=== PATIENT | male | born 1950 | race Caucasian/White ===

== ENCOUNTER 2019-02-28 13:42 | Inpatient (IN) | payer MEDICARE ==
[~2019-02-28] VITALS: Ht 167.6 cm; Wt 115.9 kg
--- NOTE | 2019-02-28 14:07 | PHYS DOC ---
Adult General Chief Complaint Chief Complaint: SHORTNESS OF BREATH [facility] HPI Patient is a 69 year old male that presents with shortness of breath and swelling this has been ongoing for several days. The patient has a history of congestive heart failure and states that he is prescribed 40 mg Lasix per day. The patient states that due to his swelling he has been taking 240 mg of Lasix per day. States that he is still having swelling. No other complaints. Review of Systems Review of Systems Constitutional: Denies fever or chills [] Eyes: Denies change in visual acuity, redness, or eye pain [] HENT: Denies nasal congestion or sore throat [] Respiratory: Denies cough or shortness of breath [] Cardiovascular: No additional information not addressed in HPI [] GI: Denies abdominal pain, nausea, vomiting, bloody stools or diarrhea [] : Denies dysuria or hematuria [] Musculoskeletal: Denies back pain or joint pain [] Integument: Denies rash or skin lesions [] Neurologic: Denies headache, focal weakness or sensory changes [] Endocrine: Denies polyuria or polydipsia [] Complete systems were reviewed and found to be within normal limits, except as documented in this note. Allergies Allergies Allergies Coded Allergies Type Severity Reaction Last Updated Verified No Known Drug Allergies 02/28/19 No Physical Exam Physical Exam Constitutional: Well developed, well nourished, no acute distress, non-toxic appearance. [] HENT: Normocephalic, atraumatic, bilateral external ears normal, oropharynx moist, no oral exudates, nose normal. [] Eyes: PERRLA, EOMI, conjunctiva normal, no discharge. [] Neck: Normal range of motion, no tenderness, supple, no stridor. [] Cardiovascular:Heart rate regular rhythm, no murmur [] Lungs & Thorax: Bilateral breath sounds clear to auscultation with exception of diminished in the bases bilaterally. Abdomen: Bowel sounds normal, soft, no tenderness, no masses, no pulsatile masses. Skin: Warm, dry, no erythema, no rash. [] Back: No tenderness, no CVA tenderness. [] Extremities: No tenderness, no cyanosis, no clubbing, ROM intact, has 1+ pitting edema bilaterally. Neurologic: Alert and oriented X 3, normal motor function, normal sensory function, no focal deficits noted. [] Psychologic: Affect normal, judgement normal, mood normal. [] Current Patient Data Vital Signs Vital Signs Date Time Temp Pulse Resp B/P (MAP) Pulse Ox O2 Delivery O2 Flow Rate FiO2 02/28/19 13:54 97.8 81 19 150/72 (98) 94 Room Air 97.8 Lab Values Laboratory Tests Test 02/28/19 14:03 White Blood Count 9.3 x10^3/uL (4.0-11.0) Red Blood Count 3.55 x10^6/uL (4.30-5.70) L Hemoglobin 10.7 g/dL (13.0-17.5) L Hematocrit 32.2 % (39.0-53.0) L Mean Corpuscular Volume 91 fL (79-100) Mean Corpuscular Hemoglobin 30 pg (25-35) Mean Corpuscular Hemoglobin Concent 33 g/dL (31-37) Red Cell Distribution Width 19.6 % (11.5-14.5) H Platelet Count 188 x10^3/uL (140-400) Neutrophils (%) (Auto) 71 % (31-73) Lymphocytes (%) (Auto) 9 % (24-48) L Monocytes (%) (Auto) 12 % (0-9) H Eosinophils (%) (Auto) 6 % (0-3) H Basophils (%) (Auto) 1 % (0-3) Neutrophils # (Auto) 6.6 x10^3/uL (1.8-7.7) Lymphocytes # (Auto) 0.9 x10^3/uL (1.0-4.8) L Monocytes # (Auto) 1.1 x10^3/uL (0.0-1.1) Eosinophils # (Auto) 0.6 x10^3/uL (0.0-0.7) Basophils # (Auto) 0.1 x10^3/uL (0.0-0.2) Prothrombin Time 16.9 SEC (11.7-14.0) H Prothrombin Time INR 1.4 (0.8-1.1) H Activated Partial Thromboplast Time 35 SEC (24-38) Sodium Level 147 mmol/L (136-145) H Potassium Level 4.3 mmol/L (3.5-5.1) Chloride Level 105 mmol/L (98-107) Carbon Dioxide Level 33 mmol/L (21-32) H Anion Gap 9 (6-14) Blood Urea Nitrogen 69 mg/dL (8-26) H Creatinine 2.6 mg/dL (0.7-1.3) H Estimated GFR (Cockcroft-Gault) 24.5 BUN/Creatinine Ratio 27 (6-20) H Glucose Level 180 mg/dL (70-99) H Calcium Level 9.0 mg/dL (8.5-10.1) Total Bilirubin 1.0 mg/dL (0.2-1.0) Aspartate Amino Transferase (AST) 38 U/L (15-37) H Alanine Aminotransferase (ALT) 48 U/L (16-63) Alkaline Phosphatase 167 U/L (46-116) H Creatine Kinase 139 U/L (39-308) Creatine Kinase MB (Mass) 2.7 ng/mL (0.0-3.6) Creatine Kinase MB Relative Index 1.9 % (0-4) Troponin I Quantitative < 0.017 ng/mL (0.000-0.055) UO-Pue-D-Type Natriuretic Peptide 4372 pg/mL (0-124) H Total Protein 8.1 g/dL (6.4-8.2) Albumin 3.1 g/dL (3.4-5.0) L Albumin/Globulin Ratio 0.6 (1.0-1.7) L Laboratory Tests 02/28/19 14:03 Laboratory Tests 02/28/19 14:03 EKG EKG EKG interpreted by Dr. Lord Sinus with rate of 61 that is paced. No STEMI. Right axis deviation.[] Radiology/Procedures Radiology/Procedures [][facility] [address] [place] [address] IMAGING REPORT Signed PATIENT: ROGERIO MUÑIZ ACCOUNT: [id number] : 1950 LOCATION: ER AGE: 69 SEX: M EXAM STATUS: REG ER ORD. PHYSICIAN: COSTA JORDAN APRN REASON: sob PROCEDURE: CHEST PA & LATERAL Chest radiograph 02/28/2019 1:54 PM INDICATION: Shortness of breath COMPARISON: None available TECHNIQUE: Frontal and lateral views of the chest are provided. FINDINGS: The cardiomediastinal silhouette is enlarged. Median sternotomy changes are present. Left chest wall cardiac device is identified with leads projecting over the right atrium, right ventricle and coronary sinus. There is mild pulmonary vascular congestion. No significant pleural effusions or pneumothorax. No significant osseous abnormality is identified. IMPRESSION: Cardiomegaly with mild pulmonary vascular congestion as may be seen with congestive heart failure. Electronically signed by: Lee Ignacio MD (02/28/2019 2:36 PM) [facility] DICTATED and SIGNED BY: LEE IGNACIO MD DATE: 02/28/19 143 Course & Med Decision Making Course & Med Decision Making Pertinent Labs and Imaging studies reviewed. (See chart for details) Will get labs, ekg, chest x-ray.\ Chest xray shows mild pulmonary vascular congestion. Labs shows Creatinine that is 2.6 which is elevated from his baseline of 1.7. Sodium is elevated at 147, BNP is 4376. Will call Dr. Bowers for admission. Will consult Cards, GI and Nephrology. Dr. Bowers accepts admissions at 1500. Will also order abdominal ultrasound due to patient abdominal bloating. Dragon Disclaimer Dragon Disclaimer This electronic medical record was generated, in whole or in part, using a voice recognition dictation system. Departure Departure Impression: Primary Impression: Acute exacerbation of CHF (congestive heart failure) Additional Impression: FILOMENA (acute kidney injury) Disposition: ADMITTED INPATIENT Admitting Physician: AIME Condition: STABLE Problem Qualifiers Primary Impression: Acute exacerbation of CHF (congestive heart failure) Heart failure type: unspecified Qualified Codes: I50.9 - Heart failure, unspecified COSTA JORDAN APRN Feb 28, 2019 14:07
[2019-02-28 14:13] LABS: BASO # 0.1 x10^3/uL (0.0-0.2); BASO % 1 % (0-3); EOS # 0.6 x10^3/uL (0.0-0.7); EOS % 6 % (0-3); HEMATOCRIT 32.2 % (39.0-53.0); HEMOGLOBIN 10.7 g/dL (13.0-17.5); LYMPH # 0.9 x10^3/uL (1.0-4.8); LYMPH % 9 % (24-48); MEAN CORPUSCULAR HEMOGLOBIN 30 pg (25-35); MEAN CORPUSCULAR HGB CONC 33 g/dL (31-37); MEAN CORPUSCULAR VOLUME 91 fL (79-100); MONO # 1.1 x10^3/uL (0.0-1.1); MONO % 12 % (0-9); NEUT # 6.6 x10^3/uL (1.8-7.7); NEUT % 71 % (31-73); PLATELET COUNT 188 x10^3/uL (140-400); RED BLOOD COUNT 3.55 x10^6/uL (4.30-5.70); RED CELL DISTRIBUTION WIDTH 19.6 % (11.5-14.5); WHITE BLOOD COUNT 9.3 x10^3/uL (4.0-11.0)
[2019-02-28 14:22] LABS: PROTHROMBIN TIME PATIENT 16.9 SEC (11.7-14.0)
[2019-02-28 14:25] LABS: CREATININE 2.6 mg/dL (0.7-1.3); GFR 24.5; POTASSIUM 4.3 mmol/L (3.5-5.1)
--- NOTE | 2019-02-28 14:27 | EKG ---
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
[2019-02-28 14:39] LABS: ALBUMIN 3.1 g/dL (3.4-5.0); ALBUMIN/GLOBULIN RATIO 0.6 (1.0-1.7); TOTAL PROTEIN 8.1 g/dL (6.4-8.2)
--- NOTE | 2019-02-28 14:39 | RAD ---
Chest radiograph 02/28/2019 1:54 PM INDICATION: Shortness of breath COMPARISON: None available TECHNIQUE: Frontal and lateral views of the chest are provided. FINDINGS: The cardiomediastinal silhouette is enlarged. Median sternotomy changes are present. Left chest wall cardiac device is identified with leads projecting over the right atrium, right ventricle and coronary sinus. There is mild pulmonary vascular congestion. No significant pleural effusions or pneumothorax. No significant osseous abnormality is identified. IMPRESSION: Cardiomegaly with mild pulmonary vascular congestion as may be seen with congestive heart failure. Electronically signed by: Jaycee Estrada MD (02/28/2019 2:36 PM) [facility]
--- NOTE | 2019-02-28 14:58 | PDOC1 ---
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 The patient has a history of congestive heart failure and states that he is prescribed 40 mg Lasix per day. 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 in [facility], states he has had a CA diagnosed by ekg alone in last 2 years, has gained about 25 lbs in 6 months Past Medical History Cardiovascular: CHF, CA Musculoskeletal: Osteoarthritis Family History Family History: Diabetes Family History: Grandparents Social History Smoke: No ALCOHOL: none Drugs: None Current Problem List Problem List Problems Medical Problems: (1) Acute exacerbation of CHF (congestive heart failure) Status: Acute (2) FILOMENA (acute kidney injury) Status: Acute Allergies Allergies: Coded Allergies: No Known Drug Allergies (Unverified , 02/28/19) ROS Review of System Review of Systems Review of Systems Constitutional: Denies fever or chills [] Eyes: Denies change in visual acuity, redness, or eye pain [] HENT: Denies nasal congestion or sore throat [] Respiratory: notes exertional shortness of breath [] Cardiovascular: No additional information not addressed in HPI [] GI: Denies abdominal pain, nausea, vomiting, bloody stools or diarrhea pos bloating[] : Denies dysuria or hematuria [] Musculoskeletal: Denies back pain or joint pain [] Integument: Denies rash or skin lesions [] Neurologic: Denies headache, focal weakness or sensory changes [] Endocrine: Denies polyuria or polydipsia [] 14 pt systems were reviewed and found to be within normal limits, except as documented Physical Exam Physical Exam Physical Exam Physical Exam Constitutional: Well developed, well nourished, no acute distress, non-toxic appearance. [] HENT: Normocephalic, atraumatic, bilateral external ears normal, oropharynx moist, no oral exudates, nose normal. [] Eyes: PERRLA, EOMI, conjunctiva normal, no discharge. [] Neck: Normal range of motion, no tenderness, supple, no stridor. [] Cardiovascular:Heart rate regular rhythm, no murmur [] Lungs & Thorax: Bilateral breath sounds clear to auscultation with exception of diminished in the bases bilaterally. Abdomen: Bowel sounds normal, soft, no tenderness, no masses, no pulsatile masses. Skin: Warm, dry, no erythema, no rash. [] Back: No tenderness, no CVA tenderness. [] Extremities: No tenderness, no cyanosis, no clubbing, ROM intact, has 2+ pitting edema bilaterally. Neurologic: Alert and oriented X 3, normal motor function, normal sensory function, no focal deficits noted. [] Psychologic: Affect normal, judgment normal, mood normal. [] General: Alert, Oriented X3, Cooperative, No acute distress HEENT: Mucous membr. moist/pink Lungs: Clear to auscultation, Normal air movement Heart: S1S2, RRR, no thrills Abdomen: Soft, Other (very obese) Rectal Exam: not examined PELVIC: Examination not indicated Extremities: No cyanosis, No tenderness/swelling, Other (2 plus ankle edema bilaterally) Neuro: Normal speech, Cranial nerves 3-12 NL Psych/Mental Status: Mental status NL, Mood NL Vitals Vitals Vital Signs Date Time Temp Pulse Resp B/P (MAP) Pulse Ox O2 Delivery O2 Flow Rate FiO2 02/28/19 13:54 97.8 81 19 150/72 (98) 94 Room Air 97.8 Labs Labs Laboratory Tests Test 02/28/19 14:03 White Blood Count 9.3 x10^3/uL (4.0-11.0) Red Blood Count 3.55 x10^6/uL (4.30-5.70) Hemoglobin 10.7 g/dL (13.0-17.5) Hematocrit 32.2 % (39.0-53.0) Mean Corpuscular Volume 91 fL (79-100) Mean Corpuscular Hemoglobin 30 pg (25-35) Mean Corpuscular Hemoglobin Concent 33 g/dL (31-37) Red Cell Distribution Width 19.6 % (11.5-14.5) Platelet Count 188 x10^3/uL (140-400) Neutrophils (%) (Auto) 71 % (31-73) Lymphocytes (%) (Auto) 9 % (24-48) Monocytes (%) (Auto) 12 % (0-9) Eosinophils (%) (Auto) 6 % (0-3) Basophils (%) (Auto) 1 % (0-3) Neutrophils # (Auto) 6.6 x10^3/uL (1.8-7.7) Lymphocytes # (Auto) 0.9 x10^3/uL (1.0-4.8) Monocytes # (Auto) 1.1 x10^3/uL (0.0-1.1) Eosinophils # (Auto) 0.6 x10^3/uL (0.0-0.7) Basophils # (Auto) 0.1 x10^3/uL (0.0-0.2) Prothrombin Time 16.9 SEC (11.7-14.0) Prothromb Time International Ratio 1.4 (0.8-1.1) Activated Partial Thromboplast Time 35 SEC (24-38) Sodium Level 147 mmol/L (136-145) Potassium Level 4.3 mmol/L (3.5-5.1) Chloride Level 105 mmol/L (98-107) Carbon Dioxide Level 33 mmol/L (21-32) Anion Gap 9 (6-14) Blood Urea Nitrogen 69 mg/dL (8-26) Creatinine 2.6 mg/dL (0.7-1.3) Estimated GFR (Cockcroft-Gault) 24.5 BUN/Creatinine Ratio 27 (6-20) Glucose Level 180 mg/dL (70-99) Calcium Level 9.0 mg/dL (8.5-10.1) Total Bilirubin 1.0 mg/dL (0.2-1.0) Aspartate Amino Transf (AST/SGOT) 38 U/L (15-37) Alanine Aminotransferase (ALT/SGPT) 48 U/L (16-63) Alkaline Phosphatase 167 U/L (46-116) Creatine Kinase 139 U/L (39-308) Creatine Kinase MB (Mass) 2.7 ng/mL (0.0-3.6) Creatine Kinase MB Relative Index 1.9 % (0-4) Troponin I Quantitative < 0.017 ng/mL (0.000-0.055) CK-Xhd-G-Type Natriuretic Peptide 4372 pg/mL (0-124) Total Protein 8.1 g/dL (6.4-8.2) Albumin 3.1 g/dL (3.4-5.0) Albumin/Globulin Ratio 0.6 (1.0-1.7) Laboratory Tests Test 02/28/19 14:03 White Blood Count 9.3 x10^3/uL (4.0-11.0) Red Blood Count 3.55 x10^6/uL (4.30-5.70) Hemoglobin 10.7 g/dL (13.0-17.5) Hematocrit 32.2 % (39.0-53.0) Mean Corpuscular Volume 91 fL (79-100) Mean Corpuscular Hemoglobin 30 pg (25-35) Mean Corpuscular Hemoglobin Concent 33 g/dL (31-37) Red Cell Distribution Width 19.6 % (11.5-14.5) Platelet Count 188 x10^3/uL (140-400) Neutrophils (%) (Auto) 71 % (31-73) Lymphocytes (%) (Auto) 9 % (24-48) Monocytes (%) (Auto) 12 % (0-9) Eosinophils (%) (Auto) 6 % (0-3) Basophils (%) (Auto) 1 % (0-3) Neutrophils # (Auto) 6.6 x10^3/uL (1.8-7.7) Lymphocytes # (Auto) 0.9 x10^3/uL (1.0-4.8) Monocytes # (Auto) 1.1 x10^3/uL (0.0-1.1) Eosinophils # (Auto) 0.6 x10^3/uL (0.0-0.7) Basophils # (Auto) 0.1 x10^3/uL (0.0-0.2) Prothrombin Time 16.9 SEC (11.7-14.0) Prothromb Time International Ratio 1.4 (0.8-1.1) Activated Partial Thromboplast Time 35 SEC (24-38) Sodium Level 147 mmol/L (136-145) Potassium Level 4.3 mmol/L (3.5-5.1) Chloride Level 105 mmol/L (98-107) Carbon Dioxide Level 33 mmol/L (21-32) Anion Gap 9 (6-14) Blood Urea Nitrogen 69 mg/dL (8-26) Creatinine 2.6 mg/dL (0.7-1.3) Estimated GFR (Cockcroft-Gault) 24.5 BUN/Creatinine Ratio 27 (6-20) Glucose Level 180 mg/dL (70-99) Calcium Level 9.0 mg/dL (8.5-10.1) Total Bilirubin 1.0 mg/dL (0.2-1.0) Aspartate Amino Transf (AST/SGOT) 38 U/L (15-37) Alanine Aminotransferase (ALT/SGPT) 48 U/L (16-63) Alkaline Phosphatase 167 U/L (46-116) Creatine Kinase 139 U/L (39-308) Creatine Kinase MB (Mass) 2.7 ng/mL (0.0-3.6) Creatine Kinase MB Relative Index 1.9 % (0-4) Troponin I Quantitative < 0.017 ng/mL (0.000-0.055) ZS-Evn-N-Type Natriuretic Peptide 4372 pg/mL (0-124) Total Protein 8.1 g/dL (6.4-8.2) Albumin 3.1 g/dL (3.4-5.0) Albumin/Globulin Ratio 0.6 (1.0-1.7) Images Images Chest radiograph 02/28/2019 1:54 PM INDICATION: Shortness of breath COMPARISON: None available TECHNIQUE: Frontal and lateral views of the chest are provided. FINDINGS: The cardiomediastinal silhouette is enlarged. Median sternotomy changes are present. Left chest wall cardiac device is identified with leads projecting over the right atrium, right ventricle and coronary sinus. There is mild pulmonary vascular congestion. No significant pleural effusions or pneumothorax. No significant osseous abnormality is identified. IMPRESSION: Cardiomegaly with mild pulmonary vascular congestion as may be seen with congestive heart failure. Electronically signed by: Lee Estrada MD (02/28/2019 2:36 PM) [facility] DICTATED and SIGNED BY: LEE ESTRADA MD DATE: 02/28/19 1436 VTE Prophylaxis Ordered VTE Prophylaxis Devices: No VTE Pharmacological Prophylaxi: Yes Assessment/Plan Assessment/Plan IMPRESSION: acute exac of chf Cardiomegaly with mild pulmonary vascular congestion as may be seen with congestive heart failure. ACUTE RENAL INJURY, suspect CKD subjective abdominal bloating morbid obesity anemia DIABETES SUSPECTED inc LFT'S anemia PLAN ADMIT cvc bed ECHO CARDIOLOGY CONSULT Nephrology consult abd sono tsh UA GI CONSULT A1C Accuchecks FE PANEL 58 min pt exam, chart review, > 50% of time spent with exam, chart review, pt care coordination ESTEBAN ECHEVARRIA MD Feb 28, 2019 14:58
[2019-02-28] MEDS ORDERED: ACETAMINOPHEN 325 MG TABLET. PO PRN (15:45)
[2019-02-28] MEDS ORDERED: ONDANSETRON PF 4 MG/2 ML VIAL. IV PRN (15:45)
[2019-02-28] MEDS ORDERED: cloNIDine HCL 0.1 MG TABLET PO PRN (15:45)
[2019-02-28] MEDS ORDERED: ALBUTEROL SULFATE 2.5 MG/3 ML NEBU. NEB PRN (15:45)
[2019-02-28] MEDS ORDERED: 0.9 % SODIUM CHLORIDE 10 ML DISP.SYRIN. IV PRN (15:45)
[2019-02-28] MEDS ORDERED: guaiFENesin ORAL 200 MG/10 ML LIQUID. PO PRN (15:45)
[2019-02-28] MEDS ORDERED: DOCUSATE SODIUM 100 MG CAPSULE. PO PRN (15:45)
[2019-02-28] MEDS ORDERED: DEXTROSE 50% 25 GM / 50ML DISP.SYRIN. IV PRN (16:00)
[2019-02-28] MEDS ORDERED: IV DEXTROSE 5% 250 ML BAG. IV PRN (16:00)
--- NOTE | 2019-02-28 16:20 | PDOC2 ---
GI CONSULT Reason For Consult: Bloating HPI: HPI: 69 y/o male seen in ER. SOA and weight gain (16 lbs) x 3 weeks unimproved w/ increased Lasix dose. Has had trace BLE edema and abdominal distention - says he's needed to wear pants w/ elastic waistbands. Georgina notes decreased appetite. Noted w/ Hgb 10.7, MCV 91, RDW 19.6, INR 1.4, BUN 69, Cr 2.6, TSH 8, BNP 4372, bili 1, AST 38, ALT 48, Alk Phos 167. CXR w/ cardiomegaly and mild pulmonary vascular congestion. No n/v, reflux/heartburn, abd pain, diarrhea, constipation, hematochezia, or melena. Had EGD and colonoscopy last year in [place] w/ Dr. Vo for anemia that reportedly showed an ulcer +H. pylori - says he was given PrevPac and repeat EGD confirmed healing. He thinks colonoscopy showed a polyp - he is actually scheduled to have another colonoscopy on 03/13/19 at [facility]. No GB, liver, or pancreas history. Takes ASA 81mg QD. Says Hgb returned to normal after last EGD so he's surprised to learn he's anemic again. PMH: PMH: CAD, CHF, HLD, DM, CKD (follows w/ nephrology), glaucoma, PUD, colon polyp CABG, AICD, left renal biopsy (specimen lost en route to lab) FH: Family History: No pertinent hx (denies GI cancers) Social History: Smoke: Quit ALCOHOL: occassional Drugs: None ROS: GEN: Denies fevers, chills, sweats HEENT: Denies blurred vision, sore throat CV: Denies chest pain RESP: +SOA GI: Per HPI : Denies hematuria, dysuria ENDO: +weight gain NEURO: Denies confusion, dizziness MSK: +swelling SKIN: Denies jaundice, pruritus Vitals: Vitals: Vital Signs Date Time Temp Pulse Resp B/P (MAP) Pulse Ox O2 Delivery O2 Flow Rate FiO2 02/28/19 13:54 97.8 81 19 150/72 (98) 94 Room Air 97.8 Labs: Labs: Laboratory Tests Test 02/28/19 13:59 02/28/19 14:03 Thyroid Stimulating Hormone (TSH) 8.052 uIU/mL (0.358-3.74) White Blood Count 9.3 x10^3/uL (4.0-11.0) Red Blood Count 3.55 x10^6/uL (4.30-5.70) Hemoglobin 10.7 g/dL (13.0-17.5) Hematocrit 32.2 % (39.0-53.0) Mean Corpuscular Volume 91 fL (79-100) Mean Corpuscular Hemoglobin 30 pg (25-35) Mean Corpuscular Hemoglobin Concent 33 g/dL (31-37) Red Cell Distribution Width 19.6 % (11.5-14.5) Platelet Count 188 x10^3/uL (140-400) Neutrophils (%) (Auto) 71 % (31-73) Lymphocytes (%) (Auto) 9 % (24-48) Monocytes (%) (Auto) 12 % (0-9) Eosinophils (%) (Auto) 6 % (0-3) Basophils (%) (Auto) 1 % (0-3) Neutrophils # (Auto) 6.6 x10^3/uL (1.8-7.7) Lymphocytes # (Auto) 0.9 x10^3/uL (1.0-4.8) Monocytes # (Auto) 1.1 x10^3/uL (0.0-1.1) Eosinophils # (Auto) 0.6 x10^3/uL (0.0-0.7) Basophils # (Auto) 0.1 x10^3/uL (0.0-0.2) Prothrombin Time 16.9 SEC (11.7-14.0) Prothromb Time International Ratio 1.4 (0.8-1.1) Activated Partial Thromboplast Time 35 SEC (24-38) Sodium Level 147 mmol/L (136-145) Potassium Level 4.3 mmol/L (3.5-5.1) Chloride Level 105 mmol/L (98-107) Carbon Dioxide Level 33 mmol/L (21-32) Anion Gap 9 (6-14) Blood Urea Nitrogen 69 mg/dL (8-26) Creatinine 2.6 mg/dL (0.7-1.3) Estimated GFR (Cockcroft-Gault) 24.5 BUN/Creatinine Ratio 27 (6-20) Glucose Level 180 mg/dL (70-99) Calcium Level 9.0 mg/dL (8.5-10.1) Total Bilirubin 1.0 mg/dL (0.2-1.0) Aspartate Amino Transf (AST/SGOT) 38 U/L (15-37) Alanine Aminotransferase (ALT/SGPT) 48 U/L (16-63) Alkaline Phosphatase 167 U/L (46-116) Creatine Kinase 139 U/L (39-308) Creatine Kinase MB (Mass) 2.7 ng/mL (0.0-3.6) Creatine Kinase MB Relative Index 1.9 % (0-4) Troponin I Quantitative < 0.017 ng/mL (0.000-0.055) OM-Dli-D-Type Natriuretic Peptide 4372 pg/mL (0-124) Total Protein 8.1 g/dL (6.4-8.2) Albumin 3.1 g/dL (3.4-5.0) Albumin/Globulin Ratio 0.6 (1.0-1.7) Allergies: Coded Allergies: No Known Drug Allergies (Unverified , 02/28/19) Medications: CXR 02/28 IMPRESSION: Cardiomegaly with mild pulmonary vascular congestion as may be seen with congestive heart failure. Abd US 02/28 pending Imaging: Imaging: CXR IMPRESSION: Cardiomegaly with mild pulmonary vascular congestion as may be seen with congestive heart failure. PE: GEN: NAD HEENT: Atraumatic, PERRL LUNGS: clear anteriorly HEART: RRR ABD: NABS, large/round, some distention, non-tender EXTREMITY: trace BLE edema SKIN: No rashes, no jaundice NEURO/PSYCH: A & O �3, drowsy A/P: A/P: CHF, CKD/?FILOMENA Abd distention Normocytic anemia, elevated TSH, mildly elevated AST and Alk Phos H/o PUD/H. pylori - treated/healed on EGD last year CRC screen, h/o polyps - reports colonoscopy last year in [place] H/o CAD on ASA -- Cardiology and nephrology to see. Await US. Follow Hgb and LFTs. Check anemia parameters - iron profile already ordered, add B12. 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 Will ask for 'scope records from [place]. GERALD MADRID Feb 28, 2019 16:20
--- NOTE | 2019-02-28 16:22 | RAD ---
Complete abdominal ultrasound 02/28/2019 2:56 PM Clinical History: Abdominal bloating Technique: Ultrasound examination of the abdomen was performed, and multiple static images were submitted for review. Comparison: None Findings: The pancreas is not visualized secondary to overlying gas filled bowel. The aorta and IVC are poorly visualized. The liver is enlarged measuring 23 cm longitudinally. No focal hepatic lesion is identified on provided imaging. Hepatic echotexture appears be grossly normal. The common bile duct is dilated to 1.1 cm. The gallbladder however surgically absent this therefore may represent reservoir effect/postoperative change. The right kidney measures 15 cm longitudinally. There is an exophytic cyst arising from the right kidney measuring 2.6 cm. The spleen is enlarged measuring 13.5 cm. Multicystic structure is present in the left upper abdomen. Etiology is uncertain. This measures at least 21 cm in diameter. This could represent a multicystic, or markedly hydronephrotic left kidney. Evaluation by ultrasound is limited. Impression: 1. Hepatosplenomegaly. 2. Multicystic structure in the left upper abdomen, at least 21 cm in diameter, possibly a multicystic or markedly hydronephrotic left kidney. Abdominal CT recommended for further evaluation. 3. Dilatation of the common bile duct. Contracted gallbladder. Consider correlation with laboratory findings. Attention on follow-up CT scan recommended. Electronically signed by: Barrera Lopez MD (02/28/2019 4:19 PM) [id number]
[2019-02-28 16:30] VITALS: BP 146/78
[2019-02-28] MEDS ORDERED: POLYETHYLENE GLYCOL 3350 17 GM PACKET. PO PRN (16:30)
[2019-02-28] MEDS: PANTOPRAZOLE 40 MG TABLET.DR. PO SCH (16:30)
[2019-02-28] MEDS: INSULIN LISPRO 300 UNITS/3 ML VIAL. SQ SCH (17:33)
[2019-02-28] MEDS ORDERED: CYAN-25 PO (17:51)
[2019-02-28] MEDS ORDERED: ASCO500T3 PO (17:51)
[2019-02-28] MEDS ORDERED: LISI-334 PO (17:51)
[2019-02-28] MEDS ORDERED: ISOS30TA4 PO (17:51)
[2019-02-28] MEDS ORDERED: GABA800T5 PO (17:51)
[2019-02-28] MEDS ORDERED: INSU100I27 SQ (17:51)
[2019-02-28] MEDS ORDERED: SERT100T8 PO (17:51)
[2019-02-28] MEDS ORDERED: TRAM50TA PO (17:51)
[2019-02-28] MEDS ORDERED: AMIO200T4 PO (17:51)
[2019-02-28] MEDS ORDERED: TAMS0.4C97 PO (17:51)
[2019-02-28] MEDS ORDERED: ALLO100T PO (17:51)
[2019-02-28] MEDS ORDERED: ATOR40TA59 PO (17:51)
[2019-02-28] MEDS ORDERED: DIGO125T PO (17:51)
[2019-02-28] MEDS ORDERED: SAXA5TAB PO (17:51)
[2019-02-28] MEDS ORDERED: FURO-68 PO (17:51)
[2019-02-28] MEDS ORDERED: CHOL10003 PO (17:51)
[2019-02-28] MEDS ORDERED: INSU100C SQ (17:51)
[2019-02-28] MEDS ORDERED: OMEG-165 PO (17:51)
[2019-02-28] MEDS ORDERED: CARB15DR3 EACHEYE (17:51)
[2019-02-28] MEDS ORDERED: ASPI-612 PO (17:51)
[2019-02-28] MEDS ORDERED: CARV25TA PO (17:51)
[2019-02-28] MEDS ORDERED: TIMO10DR5 EACHEYE (17:51)
[2019-02-28] MEDS ORDERED: UBID10CA7 PO (17:51)
[2019-02-28] MEDS ORDERED: POLY2500 PO (17:51)
[2019-02-28] MEDS ORDERED: LATA2.5D3 OP (17:51)
[2019-02-28] MEDS ORDERED: BRIN10DR EACHEYE (17:51)
[2019-02-28] MEDS ORDERED: traMADol 50 MG TABLET PO PRN (18:15)
[2019-02-28 19:57] VITALS: BP 180/78
[2019-02-28] MEDS: ATORVASTATIN CALCIUM 40 MG TABLET. PO SCH (21:35)
[2019-02-28] MEDS: GABAPENTIN 400 MG CAPSULE. PO SCH (21:35)
[2019-02-28] MEDS: LATANOPROST 0.005% OPHTH SOLUTION 2.5ML BOTTLE. OU SCH (21:36)
[2019-02-28] MEDS: OMEGA-3 FATTY ACIDS/FISH OIL 1,000 MG CAPSULE. PO SCH (21:37)
[2019-02-28] MEDS: FUROSEMIDE 40 MG TABLET. PO SCH (21:37)
[2019-02-28] MEDS: TAMSULOSIN 0.4 MG CAP.ER.24H. PO SCH (21:37)
[2019-02-28] MEDS: TIMOLOL 0.5% OPHTH SOLUTION 5ML BOTTLE. OU SCH (21:38)
[2019-02-28] MEDS: DORZOLAMIDE 2% OPHTH SOLUTION 10ML BOTTLE. OU SCH (21:39)
[2019-02-28] MEDS: POLYVINYL ALCOHOL 1.4% OPHTH SOLUTION 15ML BOTTLE. OU SCH (21:40)
[2019-02-28] MEDS: INSULIN GLARGINE SYRINGE. SQ SCH (21:53)
[2019-02-28 22:02] VITALS: BP 157/81
[2019-03-01 03:12] VITALS: BP 159/86
[2019-03-01 05:54] LABS: BASO # 0.1 x10^3/uL (0.0-0.2); BASO % 1 % (0-3); EOS # 0.7 x10^3/uL (0.0-0.7); EOS % 9 % (0-3); HEMATOCRIT 30.8 % (39.0-53.0); HEMOGLOBIN 10.1 g/dL (13.0-17.5); LYMPH # 1.1 x10^3/uL (1.0-4.8); LYMPH % 13 % (24-48); MEAN CORPUSCULAR HEMOGLOBIN 30 pg (25-35); MEAN CORPUSCULAR HGB CONC 33 g/dL (31-37); MEAN CORPUSCULAR VOLUME 91 fL (79-100); MONO # 0.8 x10^3/uL (0.0-1.1); MONO % 10 % (0-9); NEUT # 5.5 x10^3/uL (1.8-7.7); NEUT % 67 % (31-73); PLATELET COUNT 172 x10^3/uL (140-400); RED BLOOD COUNT 3.37 x10^6/uL (4.30-5.70); RED CELL DISTRIBUTION WIDTH 19.3 % (11.5-14.5); WHITE BLOOD COUNT 8.2 x10^3/uL (4.0-11.0)
[2019-03-01 06:09] LABS: ALBUMIN/GLOBULIN RATIO 0.6 (1.0-1.7); CALCIUM 9.1 mg/dL (8.5-10.1); CREATININE 2.1 mg/dL (0.7-1.3); GFR 31.3; POTASSIUM 3.7 mmol/L (3.5-5.1); TOTAL PROTEIN 7.9 g/dL (6.4-8.2)
[2019-03-01 06:13] LABS: BILIRUBIN,URINE NEGATIVE (NEG); CLARITY,URINE CLEAR; COLOR,URINE YELLOW; NITRITE,URINE NEGATIVE (NEG); PROTEIN,URINE 30 mg/dL (NEG-TRACE)
[2019-03-01 07:00] VITALS: BP 144/75
[2019-03-01 07:24] LABS: BACTERIA,URINE 0 /HPF (0-FEW); RBC,URINE OCC /HPF (0-2); WBC,URINE 0 /HPF (0-4)
[2019-03-01] MEDS: PANTOPRAZOLE 40 MG TABLET.DR. PO SCH (07:30)
[2019-03-01] MEDS: INSULIN LISPRO 300 UNITS/3 ML VIAL. SQ SCH ×6 (08:00→17:26)
--- NOTE | 2019-03-01 08:14 | RAD ---
CLINICAL HISTORY: Lower extremity edema COMPARISON: None available. TECHNIQUE: Ultrasound evaluation of the bilateral lower extremities was performed from the groin to the upper calf with bazan scale, spectral and color doppler evaluation. FINDINGS: The bilateral common femoral vein, and femoral vein, including the saphenous-femoral junction are normal in appearance. Color and spectral Doppler evaluation demonstrates normal spontaneous flow, augmentation and phasicity. The bilateral popliteal vein and visualized calf veins also demonstrate normal compressibility and flow. Bilateral popliteal cystic structures are seen. IMPRESSION: No evidence for bilateral lower extremity DVT. Electronically signed by: Stephan Montano MD (03/01/2019 8:11 AM) [facility]
[2019-03-01] MEDS ORDERED: PERFLUTREN PROTEIN-A MICROSPHR 0.22 MG/ML 3 ML VIAL. IV ONE (08:45)
[2019-03-01] MEDS: POLYVINYL ALCOHOL 1.4% OPHTH SOLUTION 15ML BOTTLE. OU SCH ×4 (09:00→20:38)
[2019-03-01] MEDS: POLYETHYLENE GLYCOL 3350 17 GM PACKET. PO SCH (09:00)
[2019-03-01] MEDS ORDERED: UBIDECARENONE 10 MG PO SCH (09:00)
[2019-03-01] MEDS ORDERED: LISINOPRIL 20 MG TABLET PO SCH (09:00)
--- NOTE | 2019-03-01 09:03 | CARD ---
MR#: [id number] Date of Study: 03/01/2019 Ordering Physician: ESTEBAN ECHEVARRIA, Referring Physician: ESTEBAN ECHEVARRIA Tech: Dimple Quintanilla RDCS APPROVED REPORT EXAM: Two-dimensional and M-mode echocardiogram with Doppler, color Doppler with contrast. Other Information Quality : AverageHR: 95bpm Rhythm : NSRTechnically limited study due to body habitus. INDICATION Congestive Heart Failure Echo Enhancing Agent Indication: Endocardial border delineation Agent/Amount Used: Optison 1mL 2D DIMENSIONS RVDd4.2 (2.9-3.5cm)Left Atrium(2D)4.9 (1.6-4.0cm) IVSd1.2 (0.7-1.1cm)Aortic Root(2D)3.0 (2.0-3.7cm) LVDd6.2 (3.9-5.9cm)LVOT Diameter1.9 (1.8-2.4cm) PWd1.5 (0.7-1.1cm)LVDs5.9 (2.5-4.0cm) FS (%) 4.9 %SV21.0 ml LVEF(%)10.7 (>50%) M-Mode DIMENSIONS Left Atrium(MM)5.28 (2.5-4.0cm)Aortic Root2.80 (2.2-3.7cm) Aortic Valve AoV Peak Jose.107.6cm/sAoV VTI19.9cm AO Peak GR.4.6mmHgLVOT Peak Jose.57.9cm/s AO Mean GR.2mmHgAVA (VMAX)1.59cm2 MINNIE (VTI)1.60cm2 Mitral Valve MV E Efrocdiz594.6cm/sMV DECEL [id number] MV A Aqyekaey80.2cm/sE/A Ratio2.6 Pulmonary Valve PV Peak Icrhluhw096.4cm/s Tricuspid Valve TR P. Ftkctblf171pw/sRAP [id number] TR Peak Gr.[id number] LEFT VENTRICLE The Left Ventricle is mildly dilated. There is mild concentric left ventricular hypertrophy. The left ventricular systolic function is severely impaired. The Ejection Fraction is 10-15%. There is global hypokinesis of the left ventricle. Tissue Doppler imaging reveals moderate left ventricular diastoli c dysfunction. RIGHT VENTRICLE The right ventricle is mildly dilated. There is normal right ventricular wall thickness. Systolic fun ction is moderately reduced. Pacer lead noted in RV/RA. ATRIA The left atrium is moderately dilated. The right atrium is moderately dilated. The interatrial septum is intact with no evidence for an atrial septal defect or patent foramen ovale as noted on 2-D or Do ppler imaging. AORTIC VALVE The aortic valve is normal in structure and function. The aortic valve is trileaflet. Doppler and Col or Flow revealed no significant aortic regurgitation. There is no significant aortic valvular stenosi s. MITRAL VALVE The mitral valve is normal in structure and function. There is no evidence of mitral valve prolapse. There is no mitral valve stenosis. Doppler and Color-flow revealed mild mitral regurgitation. TRICUSPID VALVE The tricuspid valve is normal in structure and function. Doppler and Color Flow revealed mild tricusp id regurgitation. The PA pressure was estimated at 32 mmHg. There is no tricuspid valve prolapse or v egetation. There is no tricuspid valve stenosis. PULMONIC VALVE The pulmonary valve is normal in structure and function. Doppler and Color Flow revealed mild pulmoni c valvular regurgitation. There is no pulmonic valvular stenosis. GREAT VESSELS The aortic root is normal in size. The ascending aorta is normal in size. The IVC is dilated and ruddy apses <50% with inspiration. PERICARDIAL EFFUSION There is no evidence of significant pericardial effusion. Critical Notification Critical Value: No <Conclusion> The left ventricular systolic function is severely impaired. The Ejection Fraction is 10-15%. Pacer lead noted in RV/RA. Mild mitral regurgitation. Mild tricuspid regurgitation. The PA pressure was estimated at 32 mmHg. There is no evidence of significant pericardial effusion. Signed by : Bernard Armijo, Electronically Approved : 03/01/2019 09:02:28
[2019-03-01] MEDS: CHOLECALCIFEROL (VITAMIN D3) 1,000 UNIT TABLET PO SCH (09:20)
[2019-03-01] MEDS: OMEGA-3 FATTY ACIDS/FISH OIL 1,000 MG CAPSULE. PO SCH ×2 (09:20→20:41)
[2019-03-01] MEDS: ALLOPURINOL 100 MG TABLET. PO SCH (09:21)
[2019-03-01] MEDS: ASPIRIN ENTERIC COATED 81 MG TABLET.DR. PO SCH (09:21)
[2019-03-01] MEDS: GABAPENTIN 400 MG CAPSULE. PO SCH ×2 (09:22→20:41)
[2019-03-01] MEDS: CYANOCOBALAMIN (VITAMIN B-12) 1,000 MCG TABLET. PO SCH (09:23)
[2019-03-01] MEDS: SERTRALINE 50 MG TABLET. PO SCH (09:23)
[2019-03-01] MEDS: ASCORBIC ACID 500 MG TABLET PO SCH (09:25)
[2019-03-01] MEDS: DIGOXIN 125 MCG TABLET. PO SCH (09:29)
[2019-03-01] MEDS: AMIODARONE HCL 200 MG TABLET. PO SCH (09:29)
[2019-03-01] MEDS: FUROSEMIDE 40 MG TABLET. PO SCH (09:30)
[2019-03-01] MEDS: CARVEDILOL 12.5 MG TABLET. PO SCH ×2 (09:31→17:19)
[2019-03-01] MEDS: ISOSORBIDE MONONITRATE ER 30 MG TAB.ER.24H PO SCH (09:33)
[2019-03-01] MEDS: LINAGLIPTIN 5 MG TABLET PO SCH (09:34)
[2019-03-01] MEDS: TIMOLOL 0.5% OPHTH SOLUTION 5ML BOTTLE. OU SCH ×2 (09:37→20:38)
[2019-03-01] MEDS: DORZOLAMIDE 2% OPHTH SOLUTION 10ML BOTTLE. OU SCH ×3 (09:39→20:38)
--- NOTE | 2019-03-01 09:40 | PDOC2 ---
CARDIAC CONSULT DATE OF CONSULT Date of Consult DATE: 03/01/19 TIME: 09:27 REASON FOR CONSULT Reason for Consult: CHF exacerbation REFERRING PHYSICIAN Referring Physician: Fullbright SOURCE Source: Chart review, Patient HISTORY OF PRESENT ILLNESS HISTORY OF PRESENT ILLNESS This is a pleasant 69 yo male admitted for complains of shortness of breath. This has been gradually increasing in the last 2 weeks. Reports increasing leg swelling and feeling tight around girth thinking that he has ascites and has gained aboout 16 pounds. Positive for orthopnea, PND. He does have CPAP for JASSON. He has been complains with his medications. 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 Dawson to take extra dosing of lasix which he did for 3-4 days of 80 mg tid. His UOP has not been better with it and his SOA was worse. No palpitations chest pain. He remembered his EF 19% but that was remotely and had TTE in the last yr but could not tell me what his EF was. He also has CKD but could not tell me his baseline. PAST MEDICAL HISTORY Cardiovascular: CAD, CHF, HTN, Hyperlipidemia Pulmonary: Other (JASSON) CENTRAL NERVOUS SYSTEM: Other (sciatica) GI: GI bleed, Peptic Ulcer disease (h pylori), Other (colon polyps) Heme/Onc: Anemia NOS Hepatobiliary: No pertinent hx Psych: No pertinent hx Musculoskeletal: low back pain, Osteoarthritis Rheumatologic: Gout Infectious disease: No pertinent hx ENT: Other (glaucoma) Renal/: Chronic renal insuff Endocrine: Diabetes Dermatology: No pertinent hx PAST SURGICAL HISTORY Past Surgical History: Pacemaker (AICD), CABG SOCIAL HISTORY Smoke: No ALCOHOL: occassional Drugs: None Lives: with Family CURRENT MEDICATIONS CURRENT MEDICATIONS Current Medications Medications (Trade) Dose Ordered Sig/Aaliyah Route PRN Reason Start Time Stop Time Status Last Admin Dose Admin Insulin Human Lispro (HumaLOG) 0-5 UNITS TIDWMEALS SQ 02/28/19 17:00 02/28/19 17:33 Atorvastatin Calcium (Lipitor) 60 mg QHS PO 02/28/19 21:00 02/28/19 21:35 Furosemide (Lasix) 40 mg BID PO 02/28/19 21:00 02/28/19 21:37 Latanoprost (Xalatan) 1 drop HS OU 02/28/19 21:00 02/28/19 21:36 Tamsulosin HCl (Flomax) 0.4 mg HS PO 02/28/19 21:00 02/28/19 21:37 Timolol Maleate (Timoptic 0.5% Ophth) 1 drop BID OU 02/28/19 21:00 02/28/19 21:38 Dorzolamide HCl (Trusopt) 1 drop TID OU 02/28/19 21:00 02/28/19 21:39 Artificial Tears (Artificial Tears) 1 drop QID OU 02/28/19 21:00 02/28/19 21:40 Gabapentin (Neurontin) 800 mg BID PO 02/28/19 21:00 02/28/19 21:35 Insulin Glargine (Lantus Syringe) 100 unit QHS SQ 02/28/19 21:00 02/28/19 21:53 Fish Oil (Fish Oil) 2,000 mg BID PO 02/28/19 21:00 02/28/19 21:37 Perflutren Protein Type A Microsphe (Optison) 0.66 mg 1X ONCE IV 03/01/19 08:45 03/01/19 08:46 DC 03/01/19 08:49 ALLERGIES ALLERGIES: Coded Allergies: No Known Drug Allergies (Unverified , 02/28/19) ROS Review of System 14 point ROS evaluated with pertinent positives noted per HPI PHYSICAL EXAM General: Alert, Oriented X3, Cooperative, No acute distress HEENT: Atraumatic, Mucous membr. moist/pink Lungs: Other (faint basilar crackles) Heart: Regular rate (V paced), Normal S1, Normal S2, Other (3/6 systolic murmur to LLS border) Abdomen: Soft, No tenderness, Other (obese) Extremities: No cyanosis, Other (trace LE edema) Skin: No breakdown, No significant lesion Neuro: Normal speech, Sensation intact Psych/Mental Status: Mental status NL, Mood NL MUSCULOSKELETAL: Osteoarthritic changes both hands VITALS/I&O VITALS/I&O: Vital Signs Date Time Temp Pulse Resp B/P (MAP) Pulse Ox O2 Delivery O2 Flow Rate FiO2 03/01/19 07:00 97.8 60 20 144/75 (98) 94 Nasal Cannula 2.0 97.8 I & O 02/28/19 02/28/19 03/01/19 15:00 23:00 07:00 Intake Total 360 ml 600 ml Output Total 1100 ml 1550 ml Balance -740 ml -950 ml LABS Lab: Laboratory Tests Test 02/28/19 13:59 02/28/19 14:03 02/28/19 15:45 02/28/19 17:12 Thyroid Stimulating Hormone (TSH) 8.052 uIU/mL (0.358-3.74) H White Blood Count 9.3 x10^3/uL (4.0-11.0) Red Blood Count 3.55 x10^6/uL (4.30-5.70) L Hemoglobin 10.7 g/dL (13.0-17.5) L Hematocrit 32.2 % (39.0-53.0) L Mean Corpuscular Volume 91 fL (79-100) Mean Corpuscular Hemoglobin 30 pg (25-35) Mean Corpuscular Hemoglobin Concent 33 g/dL (31-37) Red Cell Distribution Width 19.6 % (11.5-14.5) H Platelet Count 188 x10^3/uL (140-400) Neutrophils (%) (Auto) 71 % (31-73) Lymphocytes (%) (Auto) 9 % (24-48) L Monocytes (%) (Auto) 12 % (0-9) H Eosinophils (%) (Auto) 6 % (0-3) H Basophils (%) (Auto) 1 % (0-3) Neutrophils # (Auto) 6.6 x10^3/uL (1.8-7.7) Lymphocytes # (Auto) 0.9 x10^3/uL (1.0-4.8) L Monocytes # (Auto) 1.1 x10^3/uL (0.0-1.1) Eosinophils # (Auto) 0.6 x10^3/uL (0.0-0.7) Basophils # (Auto) 0.1 x10^3/uL (0.0-0.2) Prothrombin Time 16.9 SEC (11.7-14.0) H Prothrombin Time INR 1.4 (0.8-1.1) H Activated Partial Thromboplast Time 35 SEC (24-38) Sodium Level 147 mmol/L (136-145) H Potassium Level 4.3 mmol/L (3.5-5.1) Chloride Level 105 mmol/L (98-107) Carbon Dioxide Level 33 mmol/L (21-32) H Anion Gap 9 (6-14) Blood Urea Nitrogen 69 mg/dL (8-26) H Creatinine 2.6 mg/dL (0.7-1.3) H Estimated GFR (Cockcroft-Gault) 24.5 BUN/Creatinine Ratio 27 (6-20) H Glucose Level 180 mg/dL (70-99) H Calcium Level 9.0 mg/dL (8.5-10.1) Total Bilirubin 1.0 mg/dL (0.2-1.0) Aspartate Amino Transferase (AST) 38 U/L (15-37) H Alanine Aminotransferase (ALT) 48 U/L (16-63) Alkaline Phosphatase 167 U/L (46-116) H Creatine Kinase 139 U/L (39-308) 138 U/L (39-308) Creatine Kinase MB (Mass) 2.7 ng/mL (0.0-3.6) 2.6 ng/mL (0.0-3.6) Creatine Kinase MB Relative Index 1.9 % (0-4) 1.9 % (0-4) Troponin I Quantitative < 0.017 ng/mL (0.000-0.055) < 0.017 ng/mL (0.000-0.055) YM-Qnf-M-Type Natriuretic Peptide 4372 pg/mL (0-124) H Total Protein 8.1 g/dL (6.4-8.2) Albumin 3.1 g/dL (3.4-5.0) L Albumin/Globulin Ratio 0.6 (1.0-1.7) L Iron Level 68 ug/dL (65-175) Total Iron Binding Capacity 295 ug/dL (250-450) Iron Saturation 23 % (15-34) Vitamin B12 Level 1468 pg/mL (247-911) H Free Thyroxine 0.80 ng/dL (0.76-1.46) Glucose (Fingerstick) 209 mg/dL (70-99) H Test 02/28/19 18:54 02/28/19 21:34 03/01/19 05:15 03/01/19 05:35 Creatine Kinase 115 U/L (39-308) Creatine Kinase MB (Mass) 2.8 ng/mL (0.0-3.6) Creatine Kinase MB Relative Index 2.4 % (0-4) Troponin I Quantitative < 0.017 ng/mL (0.000-0.055) Glucose (Fingerstick) 202 mg/dL (70-99) H White Blood Count 8.2 x10^3/uL (4.0-11.0) Red Blood Count 3.37 x10^6/uL (4.30-5.70) L Hemoglobin 10.1 g/dL (13.0-17.5) L Hematocrit 30.8 % (39.0-53.0) L Mean Corpuscular Volume 91 fL (79-100) Mean Corpuscular Hemoglobin 30 pg (25-35) Mean Corpuscular Hemoglobin Concent 33 g/dL (31-37) Red Cell Distribution Width 19.3 % (11.5-14.5) H Platelet Count 172 x10^3/uL (140-400) Neutrophils (%) (Auto) 67 % (31-73) Lymphocytes (%) (Auto) 13 % (24-48) L Monocytes (%) (Auto) 10 % (0-9) H Eosinophils (%) (Auto) 9 % (0-3) H Basophils (%) (Auto) 1 % (0-3) Neutrophils # (Auto) 5.5 x10^3/uL (1.8-7.7) Lymphocytes # (Auto) 1.1 x10^3/uL (1.0-4.8) Monocytes # (Auto) 0.8 x10^3/uL (0.0-1.1) Eosinophils # (Auto) 0.7 x10^3/uL (0.0-0.7) Basophils # (Auto) 0.1 x10^3/uL (0.0-0.2) Sodium Level 148 mmol/L (136-145) H Potassium Level 3.7 mmol/L (3.5-5.1) Chloride Level 107 mmol/L (98-107) Carbon Dioxide Level 34 mmol/L (21-32) H Anion Gap 7 (6-14) Blood Urea Nitrogen 64 mg/dL (8-26) H Creatinine 2.1 mg/dL (0.7-1.3) H Estimated GFR (Cockcroft-Gault) 31.3 BUN/Creatinine Ratio 30 (6-20) H Glucose Level 89 mg/dL (70-99) Calcium Level 9.1 mg/dL (8.5-10.1) Total Bilirubin 1.0 mg/dL (0.2-1.0) Aspartate Amino Transferase (AST) 28 U/L (15-37) Alanine Aminotransferase (ALT) 39 U/L (16-63) Alkaline Phosphatase 146 U/L (46-116) H Total Protein 7.9 g/dL (6.4-8.2) Albumin 3.0 g/dL (3.4-5.0) L Albumin/Globulin Ratio 0.6 (1.0-1.7) L Urine Collection Type Unknown Urine Color Yellow Urine Clarity Clear Urine pH 7.0 Urine Specific [place] 1.010 Urine Protein 30 mg/dL (NEG-TRACE) Urine Glucose (UA) Negative mg/dL (NEG) Urine Ketones (Stick) Negative mg/dL (NEG) Urine Blood Negative (NEG) Urine Nitrite Negative (NEG) Urine Bilirubin Negative (NEG) Urine Urobilinogen Dipstick 1.0 mg/dL (0.2 mg/dL) Urine Leukocyte Esterase Negative (NEG) Urine RBC Occ /HPF (0-2) Urine WBC 0 /HPF (0-4) Urine Bacteria 0 /HPF (0-FEW) Test 03/01/19 07:11 Glucose (Fingerstick) 76 mg/dL (70-99) Laboratory Tests 02/28/19 14:03 03/01/19 05:15 Laboratory Tests 02/28/19 14:03 03/01/19 05:15 ECHOCARDIOGRAM ECHOCARDIOGRAM <Conclusion> The left ventricular systolic function is severely impaired. The Ejection Fraction is 10-15%. Pacer lead noted in RV/RA. Mild mitral regurgitation. Mild tricuspid regurgitation. The PA pressure was estimated at 32 mmHg. There is no evidence of significant pericardial effusion. DATE: 03/01/19 0854 ASSESSMENT/PLAN ASSESSMENT/PLAN 1. Acute on chronic systolic/diastolic CHF with severe cardiomyopathy. SOA better 2. FILOMENA on CKD: unclear baseline. UOP improving. 3. CAD: past CABG x3 remotely 4. Ischemic Cardiomyopathy: EF 10-15%, unknown baseline 5. HTN: labile episodes 6. HLP 7. DYE FEEDER-D in situ: medtronic, V paced 8. DM2: on insulin therapy 9. Amiodarone therapy: due to past VT 10. Subclinical hypothyroidism: possibly due to amio. Defer to PCP 11. Chronic disability/chronic leg weakness with sciatica: hence WC. 12. Agent orange exposure 13. JASSON: on CPAP at home Recommendations 1. Interrogate device and note any arrhythmias. Request records, follow with Kirk Dawson 2. Continue secondary prevention measures. 3. DC lasix and start on bumex. Pt reported receiving IV lasix in ED. 3. Check Dig level 5. DC lisinopril for now. BARTOLOME WALSH APRN Mar 01, 2019 09:40
--- NOTE | 2019-03-01 10:00 | PDOC ---
[employer] PROGRESS NOTE Chief Complaint Chief Complaint CHF Exacerbation. 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 Current echo EF on 03/01/19 is 10-15% Echo Impression on 03/01/19 The left ventricular systolic function is severely impaired. The Ejection Fraction is 10-15%. Pacer lead noted in RV/RA. Mild mitral regurgitation. Mild tricuspid regurgitation. The PA pressure was estimated at 32 mmHg. There is no evidence of significant pericardial effusion. D/w nurse and family Vitals/I&O Vitals/I&O: Vital Signs Date Time Temp Pulse Resp B/P (MAP) Pulse Ox O2 Delivery O2 Flow Rate FiO2 03/01/19 09:33 60 145/86 03/01/19 07:00 97.8 20 94 Nasal Cannula 2.0 97.8 I & O 02/28/19 02/28/19 03/01/19 15:00 23:00 07:00 Intake Total 360 ml 600 ml Output Total 1100 ml 1550 ml Balance -740 ml -950 ml Physical Exam General: Alert, Oriented X3, Cooperative, No acute distress Abdomen: Soft, Other (very obese) Extremities: No cyanosis, No tenderness/swelling, Other (2 plus ankle edema bilaterally) Labs Labs: Laboratory Tests Test 02/28/19 13:59 02/28/19 14:03 02/28/19 15:45 02/28/19 17:12 Thyroid Stimulating Hormone (TSH) 8.052 uIU/mL (0.358-3.74) White Blood Count 9.3 x10^3/uL (4.0-11.0) Red Blood Count 3.55 x10^6/uL (4.30-5.70) Hemoglobin 10.7 g/dL (13.0-17.5) Hematocrit 32.2 % (39.0-53.0) Mean Corpuscular Volume 91 fL (79-100) Mean Corpuscular Hemoglobin 30 pg (25-35) Mean Corpuscular Hemoglobin Concent 33 g/dL (31-37) Red Cell Distribution Width 19.6 % (11.5-14.5) Platelet Count 188 x10^3/uL (140-400) Neutrophils (%) (Auto) 71 % (31-73) Lymphocytes (%) (Auto) 9 % (24-48) Monocytes (%) (Auto) 12 % (0-9) Eosinophils (%) (Auto) 6 % (0-3) Basophils (%) (Auto) 1 % (0-3) Neutrophils # (Auto) 6.6 x10^3/uL (1.8-7.7) Lymphocytes # (Auto) 0.9 x10^3/uL (1.0-4.8) Monocytes # (Auto) 1.1 x10^3/uL (0.0-1.1) Eosinophils # (Auto) 0.6 x10^3/uL (0.0-0.7) Basophils # (Auto) 0.1 x10^3/uL (0.0-0.2) Prothrombin Time 16.9 SEC (11.7-14.0) Prothromb Time International Ratio 1.4 (0.8-1.1) Activated Partial Thromboplast Time 35 SEC (24-38) Sodium Level 147 mmol/L (136-145) Potassium Level 4.3 mmol/L (3.5-5.1) Chloride Level 105 mmol/L (98-107) Carbon Dioxide Level 33 mmol/L (21-32) Anion Gap 9 (6-14) Blood Urea Nitrogen 69 mg/dL (8-26) Creatinine 2.6 mg/dL (0.7-1.3) Estimated GFR (Cockcroft-Gault) 24.5 BUN/Creatinine Ratio 27 (6-20) Glucose Level 180 mg/dL (70-99) Calcium Level 9.0 mg/dL (8.5-10.1) Total Bilirubin 1.0 mg/dL (0.2-1.0) Aspartate Amino Transf (AST/SGOT) 38 U/L (15-37) Alanine Aminotransferase (ALT/SGPT) 48 U/L (16-63) Alkaline Phosphatase 167 U/L (46-116) Creatine Kinase 139 U/L (39-308) 138 U/L (39-308) Creatine Kinase MB (Mass) 2.7 ng/mL (0.0-3.6) 2.6 ng/mL (0.0-3.6) Creatine Kinase MB Relative Index 1.9 % (0-4) 1.9 % (0-4) Troponin I Quantitative < 0.017 ng/mL (0.000-0.055) < 0.017 ng/mL (0.000-0.055) FK-Sfy-P-Type Natriuretic Peptide 4372 pg/mL (0-124) Total Protein 8.1 g/dL (6.4-8.2) Albumin 3.1 g/dL (3.4-5.0) Albumin/Globulin Ratio 0.6 (1.0-1.7) Iron Level 68 ug/dL (65-175) Total Iron Binding Capacity 295 ug/dL (250-450) Iron Saturation 23 % (15-34) Vitamin B12 Level 1468 pg/mL (247-911) Free Thyroxine 0.80 ng/dL (0.76-1.46) Glucose (Fingerstick) 209 mg/dL (70-99) Test 02/28/19 18:54 02/28/19 21:34 03/01/19 05:15 03/01/19 05:35 Creatine Kinase 115 U/L (39-308) Creatine Kinase MB (Mass) 2.8 ng/mL (0.0-3.6) Creatine Kinase MB Relative Index 2.4 % (0-4) Troponin I Quantitative < 0.017 ng/mL (0.000-0.055) Glucose (Fingerstick) 202 mg/dL (70-99) White Blood Count 8.2 x10^3/uL (4.0-11.0) Red Blood Count 3.37 x10^6/uL (4.30-5.70) Hemoglobin 10.1 g/dL (13.0-17.5) Hematocrit 30.8 % (39.0-53.0) Mean Corpuscular Volume 91 fL (79-100) Mean Corpuscular Hemoglobin 30 pg (25-35) Mean Corpuscular Hemoglobin Concent 33 g/dL (31-37) Red Cell Distribution Width 19.3 % (11.5-14.5) Platelet Count 172 x10^3/uL (140-400) Neutrophils (%) (Auto) 67 % (31-73) Lymphocytes (%) (Auto) 13 % (24-48) Monocytes (%) (Auto) 10 % (0-9) Eosinophils (%) (Auto) 9 % (0-3) Basophils (%) (Auto) 1 % (0-3) Neutrophils # (Auto) 5.5 x10^3/uL (1.8-7.7) Lymphocytes # (Auto) 1.1 x10^3/uL (1.0-4.8) Monocytes # (Auto) 0.8 x10^3/uL (0.0-1.1) Eosinophils # (Auto) 0.7 x10^3/uL (0.0-0.7) Basophils # (Auto) 0.1 x10^3/uL (0.0-0.2) Sodium Level 148 mmol/L (136-145) Potassium Level 3.7 mmol/L (3.5-5.1) Chloride Level 107 mmol/L (98-107) Carbon Dioxide Level 34 mmol/L (21-32) Anion Gap 7 (6-14) Blood Urea Nitrogen 64 mg/dL (8-26) Creatinine 2.1 mg/dL (0.7-1.3) Estimated GFR (Cockcroft-Gault) 31.3 BUN/Creatinine Ratio 30 (6-20) Glucose Level 89 mg/dL (70-99) Calcium Level 9.1 mg/dL (8.5-10.1) Total Bilirubin 1.0 mg/dL (0.2-1.0) Aspartate Amino Transf (AST/SGOT) 28 U/L (15-37) Alanine Aminotransferase (ALT/SGPT) 39 U/L (16-63) Alkaline Phosphatase 146 U/L (46-116) Total Protein 7.9 g/dL (6.4-8.2) Albumin 3.0 g/dL (3.4-5.0) Albumin/Globulin Ratio 0.6 (1.0-1.7) Urine Collection Type Unknown Urine Color Yellow Urine Clarity Clear Urine pH 7.0 Urine Specific [place] 1.010 Urine Protein 30 mg/dL (NEG-TRACE) Urine Glucose (UA) Negative mg/dL (NEG) Urine Ketones (Stick) Negative mg/dL (NEG) Urine Blood Negative (NEG) Urine Nitrite Negative (NEG) Urine Bilirubin Negative (NEG) Urine Urobilinogen Dipstick 1.0 mg/dL (0.2 mg/dL) Urine Leukocyte Esterase Negative (NEG) Urine RBC Occ /HPF (0-2) Urine WBC 0 /HPF (0-4) Urine Bacteria 0 /HPF (0-FEW) Test 03/01/19 07:11 Glucose (Fingerstick) 76 mg/dL (70-99) Review of Systems Review of Systems: Pt denies fever Pt denies n/v/d Assessment and Plan Assessmemt and Plan Problems Medical Problems: (1) Acute exacerbation of CHF (congestive heart failure) Status: Acute (2) FILOMENA (acute kidney injury) Status: Acute Assessment Acute exacerbation of CHF Prior hx of [facility] AICD placement HTN Hyperlipidemia Peptic Ulcer disease (h pylori), Other (colon polyps) Anemia NOS Glaucoma Chronic renal insuff Diabetes Plan Cardiac monitoring Diuresis Serial labs, monitor BUN and Cr Serial EKG Home Meds Appreciate cardiology input Discharge when ok with cardiology Comment Review of Relevant I have reviewed the following items aria (where applicable) has been applied. Medications: Current Medications Medications (Trade) Dose Ordered Sig/Aaliyah Route PRN Reason Start Time Stop Time Status Last Admin Dose Admin Insulin Human Lispro (HumaLOG) 0-5 UNITS TIDWMEALS SQ 02/28/19 17:00 02/28/19 17:33 Allopurinol (Zyloprim) 100 mg DAILY PO 03/01/19 09:00 03/01/19 09:21 Amiodarone HCl (Cordarone) 200 mg DAILY PO 03/01/19 09:00 03/01/19 09:29 Ascorbic Acid (Vitamin C) 1,000 mg DAILY PO 03/01/19 09:00 03/01/19 09:25 Aspirin (Ecotrin) 81 mg DAILY PO 03/01/19 09:00 03/01/19 09:21 Atorvastatin Calcium (Lipitor) 60 mg QHS PO 02/28/19 21:00 02/28/19 21:35 Vitamin D (Vitamin D3) 2,000 unit DAILY PO 03/01/19 09:00 03/01/19 09:20 Cyanocobalamin (Vitamin B-12) 1,000 mcg DAILY PO 03/01/19 09:00 03/01/19 09:23 Digoxin (Lanoxin) 125 mcg DAILY PO 03/01/19 09:00 03/01/19 09:29 Furosemide (Lasix) 40 mg BID PO 02/28/19 21:00 03/01/19 09:30 Isosorbide Mononitrate (Imdur) 30 mg DAILY PO 03/01/19 09:00 03/01/19 09:33 Latanoprost (Xalatan) 1 drop HS OU 02/28/19 21:00 02/28/19 21:36 Lisinopril (Prinivil) 20 mg DAILY PO 03/01/19 09:00 03/01/19 09:31 Tamsulosin HCl (Flomax) 0.4 mg HS PO 02/28/19 21:00 02/28/19 21:37 Timolol Maleate (Timoptic 0.5% Oph) 1 drop BID OU 02/28/19 21:00 03/01/19 09:37 Dorzolamide HCl (Trusopt) 1 drop TID OU 02/28/19 21:00 03/01/19 09:39 Artificial Tears (Artificial Tears) 1 drop QID OU 02/28/19 21:00 02/28/19 21:40 Carvedilol (Coreg) 50 mg BIDWMEALS PO 03/01/19 08:00 03/01/19 09:31 Gabapentin (Neurontin) 800 mg BID PO 02/28/19 21:00 03/01/19 09:22 Insulin Glargine (Lantus Syringe) 100 unit QHS SQ 02/28/19 21:00 02/28/19 21:53 Fish Oil (Fish Oil) 2,000 mg BID PO 02/28/19 21:00 03/01/19 09:20 Linagliptin (Tradjenta) 5 mg DAILY PO 03/01/19 09:00 03/01/19 09:34 Sertraline HCl (Zoloft) 150 mg DAILY PO 03/01/19 09:00 03/01/19 09:23 Perflutren Protein Type A Microsphe (Optison) 0.66 mg 1X ONCE IV 03/01/19 08:45 03/01/19 08:46 DC 03/01/19 08:49 COBY DAVIS III DO Mar 01, 2019 09:59
--- NOTE | 2019-03-01 10:42 | PDOC ---
G I PROGRESS NOTE Reason for Follow-up Anemia/Dyspnea Subjective Breathing better with diuresis Physical Exam Lungs clear CV S1 S2 ABD +BS,soft,nontender Review of Relevant I have reviewed the following items aria (where applicable) has been applied. Labs Laboratory Tests Test 02/28/19 13:59 02/28/19 14:03 02/28/19 15:45 02/28/19 17:12 Thyroid Stimulating Hormone (TSH) 8.052 uIU/mL (0.358-3.74) White Blood Count 9.3 x10^3/uL (4.0-11.0) Red Blood Count 3.55 x10^6/uL (4.30-5.70) Hemoglobin 10.7 g/dL (13.0-17.5) Hematocrit 32.2 % (39.0-53.0) Mean Corpuscular Volume 91 fL (79-100) Mean Corpuscular Hemoglobin 30 pg (25-35) Mean Corpuscular Hemoglobin Concent 33 g/dL (31-37) Red Cell Distribution Width 19.6 % (11.5-14.5) Platelet Count 188 x10^3/uL (140-400) Neutrophils (%) (Auto) 71 % (31-73) Lymphocytes (%) (Auto) 9 % (24-48) Monocytes (%) (Auto) 12 % (0-9) Eosinophils (%) (Auto) 6 % (0-3) Basophils (%) (Auto) 1 % (0-3) Neutrophils # (Auto) 6.6 x10^3/uL (1.8-7.7) Lymphocytes # (Auto) 0.9 x10^3/uL (1.0-4.8) Monocytes # (Auto) 1.1 x10^3/uL (0.0-1.1) Eosinophils # (Auto) 0.6 x10^3/uL (0.0-0.7) Basophils # (Auto) 0.1 x10^3/uL (0.0-0.2) Prothrombin Time 16.9 SEC (11.7-14.0) Prothromb Time International Ratio 1.4 (0.8-1.1) Activated Partial Thromboplast Time 35 SEC (24-38) Sodium Level 147 mmol/L (136-145) Potassium Level 4.3 mmol/L (3.5-5.1) Chloride Level 105 mmol/L (98-107) Carbon Dioxide Level 33 mmol/L (21-32) Anion Gap 9 (6-14) Blood Urea Nitrogen 69 mg/dL (8-26) Creatinine 2.6 mg/dL (0.7-1.3) Estimated GFR (Cockcroft-Gault) 24.5 BUN/Creatinine Ratio 27 (6-20) Glucose Level 180 mg/dL (70-99) Calcium Level 9.0 mg/dL (8.5-10.1) Total Bilirubin 1.0 mg/dL (0.2-1.0) Aspartate Amino Transf (AST/SGOT) 38 U/L (15-37) Alanine Aminotransferase (ALT/SGPT) 48 U/L (16-63) Alkaline Phosphatase 167 U/L (46-116) Creatine Kinase 139 U/L (39-308) 138 U/L (39-308) Creatine Kinase MB (Mass) 2.7 ng/mL (0.0-3.6) 2.6 ng/mL (0.0-3.6) Creatine Kinase MB Relative Index 1.9 % (0-4) 1.9 % (0-4) Troponin I Quantitative < 0.017 ng/mL (0.000-0.055) < 0.017 ng/mL (0.000-0.055) EH-Igb-U-Type Natriuretic Peptide 4372 pg/mL (0-124) Total Protein 8.1 g/dL (6.4-8.2) Albumin 3.1 g/dL (3.4-5.0) Albumin/Globulin Ratio 0.6 (1.0-1.7) Iron Level 68 ug/dL (65-175) Total Iron Binding Capacity 295 ug/dL (250-450) Iron Saturation 23 % (15-34) Vitamin B12 Level 1468 pg/mL (247-911) Free Thyroxine 0.80 ng/dL (0.76-1.46) Glucose (Fingerstick) 209 mg/dL (70-99) Test 02/28/19 18:54 02/28/19 21:34 03/01/19 05:15 03/01/19 05:35 Creatine Kinase 115 U/L (39-308) Creatine Kinase MB (Mass) 2.8 ng/mL (0.0-3.6) Creatine Kinase MB Relative Index 2.4 % (0-4) Troponin I Quantitative < 0.017 ng/mL (0.000-0.055) Glucose (Fingerstick) 202 mg/dL (70-99) White Blood Count 8.2 x10^3/uL (4.0-11.0) Red Blood Count 3.37 x10^6/uL (4.30-5.70) Hemoglobin 10.1 g/dL (13.0-17.5) Hematocrit 30.8 % (39.0-53.0) Mean Corpuscular Volume 91 fL (79-100) Mean Corpuscular Hemoglobin 30 pg (25-35) Mean Corpuscular Hemoglobin Concent 33 g/dL (31-37) Red Cell Distribution Width 19.3 % (11.5-14.5) Platelet Count 172 x10^3/uL (140-400) Neutrophils (%) (Auto) 67 % (31-73) Lymphocytes (%) (Auto) 13 % (24-48) Monocytes (%) (Auto) 10 % (0-9) Eosinophils (%) (Auto) 9 % (0-3) Basophils (%) (Auto) 1 % (0-3) Neutrophils # (Auto) 5.5 x10^3/uL (1.8-7.7) Lymphocytes # (Auto) 1.1 x10^3/uL (1.0-4.8) Monocytes # (Auto) 0.8 x10^3/uL (0.0-1.1) Eosinophils # (Auto) 0.7 x10^3/uL (0.0-0.7) Basophils # (Auto) 0.1 x10^3/uL (0.0-0.2) Sodium Level 148 mmol/L (136-145) Potassium Level 3.7 mmol/L (3.5-5.1) Chloride Level 107 mmol/L (98-107) Carbon Dioxide Level 34 mmol/L (21-32) Anion Gap 7 (6-14) Blood Urea Nitrogen 64 mg/dL (8-26) Creatinine 2.1 mg/dL (0.7-1.3) Estimated GFR (Cockcroft-Gault) 31.3 BUN/Creatinine Ratio 30 (6-20) Glucose Level 89 mg/dL (70-99) Calcium Level 9.1 mg/dL (8.5-10.1) Total Bilirubin 1.0 mg/dL (0.2-1.0) Aspartate Amino Transf (AST/SGOT) 28 U/L (15-37) Alanine Aminotransferase (ALT/SGPT) 39 U/L (16-63) Alkaline Phosphatase 146 U/L (46-116) Total Protein 7.9 g/dL (6.4-8.2) Albumin 3.0 g/dL (3.4-5.0) Albumin/Globulin Ratio 0.6 (1.0-1.7) Urine Collection Type Unknown Urine Color Yellow Urine Clarity Clear Urine pH 7.0 Urine Specific Portal 1.010 Urine Protein 30 mg/dL (NEG-TRACE) Urine Glucose (UA) Negative mg/dL (NEG) Urine Ketones (Stick) Negative mg/dL (NEG) Urine Blood Negative (NEG) Urine Nitrite Negative (NEG) Urine Bilirubin Negative (NEG) Urine Urobilinogen Dipstick 1.0 mg/dL (0.2 mg/dL) Urine Leukocyte Esterase Negative (NEG) Urine RBC Occ /HPF (0-2) Urine WBC 0 /HPF (0-4) Urine Bacteria 0 /HPF (0-FEW) Test 03/01/19 07:11 Glucose (Fingerstick) 76 mg/dL (70-99) Laboratory Tests Test 02/28/19 13:59 02/28/19 14:03 02/28/19 15:45 02/28/19 17:12 Thyroid Stimulating Hormone (TSH) 8.052 uIU/mL (0.358-3.74) White Blood Count 9.3 x10^3/uL (4.0-11.0) Red Blood Count 3.55 x10^6/uL (4.30-5.70) Hemoglobin 10.7 g/dL (13.0-17.5) Hematocrit 32.2 % (39.0-53.0) Mean Corpuscular Volume 91 fL (79-100) Mean Corpuscular Hemoglobin 30 pg (25-35) Mean Corpuscular Hemoglobin Concent 33 g/dL (31-37) Red Cell Distribution Width 19.6 % (11.5-14.5) Platelet Count 188 x10^3/uL (140-400) Neutrophils (%) (Auto) 71 % (31-73) Lymphocytes (%) (Auto) 9 % (24-48) Monocytes (%) (Auto) 12 % (0-9) Eosinophils (%) (Auto) 6 % (0-3) Basophils (%) (Auto) 1 % (0-3) Neutrophils # (Auto) 6.6 x10^3/uL (1.8-7.7) Lymphocytes # (Auto) 0.9 x10^3/uL (1.0-4.8) Monocytes # (Auto) 1.1 x10^3/uL (0.0-1.1) Eosinophils # (Auto) 0.6 x10^3/uL (0.0-0.7) Basophils # (Auto) 0.1 x10^3/uL (0.0-0.2) Prothrombin Time 16.9 SEC (11.7-14.0) Prothromb Time International Ratio 1.4 (0.8-1.1) Activated Partial Thromboplast Time 35 SEC (24-38) Sodium Level 147 mmol/L (136-145) Potassium Level 4.3 mmol/L (3.5-5.1) Chloride Level 105 mmol/L (98-107) Carbon Dioxide Level 33 mmol/L (21-32) Anion Gap 9 (6-14) Blood Urea Nitrogen 69 mg/dL (8-26) Creatinine 2.6 mg/dL (0.7-1.3) Estimated GFR (Cockcroft-Gault) 24.5 BUN/Creatinine Ratio 27 (6-20) Glucose Level 180 mg/dL (70-99) Calcium Level 9.0 mg/dL (8.5-10.1) Total Bilirubin 1.0 mg/dL (0.2-1.0) Aspartate Amino Transf (AST/SGOT) 38 U/L (15-37) Alanine Aminotransferase (ALT/SGPT) 48 U/L (16-63) Alkaline Phosphatase 167 U/L (46-116) Creatine Kinase 139 U/L (39-308) 138 U/L (39-308) Creatine Kinase MB (Mass) 2.7 ng/mL (0.0-3.6) 2.6 ng/mL (0.0-3.6) Creatine Kinase MB Relative Index 1.9 % (0-4) 1.9 % (0-4) Troponin I Quantitative < 0.017 ng/mL (0.000-0.055) < 0.017 ng/mL (0.000-0.055) YF-Wur-Y-Type Natriuretic Peptide 4372 pg/mL (0-124) Total Protein 8.1 g/dL (6.4-8.2) Albumin 3.1 g/dL (3.4-5.0) Albumin/Globulin Ratio 0.6 (1.0-1.7) Iron Level 68 ug/dL (65-175) Total Iron Binding Capacity 295 ug/dL (250-450) Iron Saturation 23 % (15-34) Vitamin B12 Level 1468 pg/mL (247-911) Free Thyroxine 0.80 ng/dL (0.76-1.46) Glucose (Fingerstick) 209 mg/dL (70-99) Test 02/28/19 18:54 02/28/19 21:34 03/01/19 05:15 03/01/19 05:35 Creatine Kinase 115 U/L (39-308) Creatine Kinase MB (Mass) 2.8 ng/mL (0.0-3.6) Creatine Kinase MB Relative Index 2.4 % (0-4) Troponin I Quantitative < 0.017 ng/mL (0.000-0.055) Glucose (Fingerstick) 202 mg/dL (70-99) White Blood Count 8.2 x10^3/uL (4.0-11.0) Red Blood Count 3.37 x10^6/uL (4.30-5.70) Hemoglobin 10.1 g/dL (13.0-17.5) Hematocrit 30.8 % (39.0-53.0) Mean Corpuscular Volume 91 fL (79-100) Mean Corpuscular Hemoglobin 30 pg (25-35) Mean Corpuscular Hemoglobin Concent 33 g/dL (31-37) Red Cell Distribution Width 19.3 % (11.5-14.5) Platelet Count 172 x10^3/uL (140-400) Neutrophils (%) (Auto) 67 % (31-73) Lymphocytes (%) (Auto) 13 % (24-48) Monocytes (%) (Auto) 10 % (0-9) Eosinophils (%) (Auto) 9 % (0-3) Basophils (%) (Auto) 1 % (0-3) Neutrophils # (Auto) 5.5 x10^3/uL (1.8-7.7) Lymphocytes # (Auto) 1.1 x10^3/uL (1.0-4.8) Monocytes # (Auto) 0.8 x10^3/uL (0.0-1.1) Eosinophils # (Auto) 0.7 x10^3/uL (0.0-0.7) Basophils # (Auto) 0.1 x10^3/uL (0.0-0.2) Sodium Level 148 mmol/L (136-145) Potassium Level 3.7 mmol/L (3.5-5.1) Chloride Level 107 mmol/L (98-107) Carbon Dioxide Level 34 mmol/L (21-32) Anion Gap 7 (6-14) Blood Urea Nitrogen 64 mg/dL (8-26) Creatinine 2.1 mg/dL (0.7-1.3) Estimated GFR (Cockcroft-Gault) 31.3 BUN/Creatinine Ratio 30 (6-20) Glucose Level 89 mg/dL (70-99) Calcium Level 9.1 mg/dL (8.5-10.1) Total Bilirubin 1.0 mg/dL (0.2-1.0) Aspartate Amino Transf (AST/SGOT) 28 U/L (15-37) Alanine Aminotransferase (ALT/SGPT) 39 U/L (16-63) Alkaline Phosphatase 146 U/L (46-116) Total Protein 7.9 g/dL (6.4-8.2) Albumin 3.0 g/dL (3.4-5.0) Albumin/Globulin Ratio 0.6 (1.0-1.7) Urine Collection Type Unknown Urine Color Yellow Urine Clarity Clear Urine pH 7.0 Urine Specific Portal 1.010 Urine Protein 30 mg/dL (NEG-TRACE) Urine Glucose (UA) Negative mg/dL (NEG) Urine Ketones (Stick) Negative mg/dL (NEG) Urine Blood Negative (NEG) Urine Nitrite Negative (NEG) Urine Bilirubin Negative (NEG) Urine Urobilinogen Dipstick 1.0 mg/dL (0.2 mg/dL) Urine Leukocyte Esterase Negative (NEG) Urine RBC Occ /HPF (0-2) Urine WBC 0 /HPF (0-4) Urine Bacteria 0 /HPF (0-FEW) Test 03/01/19 07:11 Glucose (Fingerstick) 76 mg/dL (70-99) Medications Current Medications Sodium Chloride (Normal Saline Flush) 3 ml QSHIFT PRN IV AFTER MEDS AND BLOOD DRAWS; Start 02/28/19 at 15:45 Ondansetron HCl (Zofran) 4 mg PRN Q4HRS PRN IV NAUSEA/VOMITING; Start 02/28/19 at 15:45 Acetaminophen (Tylenol) 650 mg PRN Q4HRS PRN PO TEMP OVER 100.4F OR MILD PAIN; Start 02/28/19 at 15:45 Clonidine HCl (Catapres) 0.1 mg PRN Q6HRS PRN PO SBP>160 OR DBP>90; Start 02/28/19 at 15:45 Docusate Sodium (Colace) 100 mg PRN BID PRN PO CONSTIPATION; Start 02/28/19 at 15:45 Albuterol Sulfate (Ventolin Neb Soln) 2.5 mg PRN Q4HRS PRN NEB SHORTNESS OF BREATH; Start 02/28/19 at 15:45 Guaifenesin (Robitussin) 200 mg PRN Q4HRS PRN PO COUGH; Start 02/28/19 at 15:45 Enoxaparin Sodium (Lovenox 40mg Syringe) 40 mg DAILY SQ ; Start 03/01/19 at 16:00 Insulin Human Lispro (HumaLOG) 0-5 UNITS TIDWMEALS SQ Last administered on 02/28/19at 17:33; Start 02/28/19 at 17:00 Dextrose (Dextrose 50%-Water Syringe) 12.5 gm PRN Q15MIN PRN IV SEE COMMENTS; Start 02/28/19 at 16:00 Dextrose 250 ml PRN Q15MIN PRN IV SEE COMMENTS; Start 02/28/19 at 16:00 Pantoprazole Sodium (Protonix) 40 mg DAILYAC PO ; Start 02/28/19 at 16:30 Polyethylene Glycol (miraLAX PACKET) 17 gm PRN DAILY PRN PO CONSTIPATION; Start 02/28/19 at 16:30 Allopurinol (Zyloprim) 100 mg DAILY PO Last administered on 03/01/19at 09:21; Start 03/01/19 at 09:00 Amiodarone HCl (Cordarone) 200 mg DAILY PO Last administered on 03/01/19 09:29; Start 03/01/19 at 09:00 Ascorbic Acid (Vitamin C) 1,000 mg DAILY PO Last administered on 03/01/19 09:25; Start 03/01/19 at 09:00 Aspirin (Ecotrin) 81 mg DAILY PO Last administered on 03/01/19 09:21; Start 03/01/19 at 09:00 Atorvastatin Calcium (Lipitor) 60 mg QHS PO Last administered on 02/28/19 21: 35; Start 02/28/19 at 21:00 Vitamin D (Vitamin D3) 2,000 unit DAILY PO Last administered on 03/01/19 09:20; Start 03/01/19 at 09:00 Cyanocobalamin (Vitamin B-12) 1,000 mcg DAILY PO Last administered on 03/01/19 09:23; Start 03/01/19 at 09:00 Digoxin (Lanoxin) 125 mcg DAILY PO Last administered on 03/01/19 09:29; Start 03/01/19 at 09:00 Furosemide (Lasix) 40 mg BID PO Last administered on 03/01/19 09:30; Start 02/28/19 at 21:00; Stop 03/01/19 at 10:06; Status DC Isosorbide Mononitrate (Imdur) 30 mg DAILY PO Last administered on 03/01/19 09:33; Start 03/01/19 at 09:00 Latanoprost (Xalatan) 1 drop HS OU Last administered on 02/28/19 21:36; Start 02/28/19 at 21:00 Lisinopril (Prinivil) 20 mg DAILY PO Last administered on 03/01/19 09:31; Start 03/01/19 at 09:00; Stop 03/01/19 at 10:06; Status DC Tamsulosin HCl (Flomax) 0.4 mg HS PO Last administered on 02/28/19 21:37; Start 02/28/19 at 21:00 Timolol Maleate (Timoptic 0.5% [facility]) 1 drop BID OU Last administered on 03/01/19 09:37; Start 02/28/19 at 21:00 Tramadol HCl (Ultram) 50 mg PRN Q12HR PRN PO PAIN; Start 02/28/19 at 18:15 Dorzolamide HCl (Trusopt) 1 drop TID OU Last administered on 03/01/19 09:39; Start 02/28/19 at 21:00 Artificial Tears (Artificial Tears) 1 drop QID OU Last administered on 02/28/19at 21:40; Start 02/28/19 at 21:00 Carvedilol (Coreg) 50 mg BIDWMEALS PO Last administered on 03/01/19 09:31; Start 03/01/19 at 08:00 Gabapentin (Neurontin) 800 mg BID PO Last administered on 03/01/19 09:22; Start 02/28/19 at 21:00 Insulin Glargine (Lantus Syringe) 100 unit QHS SQ Last administered on 02/28/19 21:53; Start 02/28/19 at 21:00 Insulin Human Lispro (HumaLOG) 25 units TIDWMEALS SQ ; Start 03/01/19 at 08:00 Fish Oil (Fish Oil) 2,000 mg BID PO Last administered on 03/01/19 09:20; Start 02/28/19 at 21:00 Polyethylene Glycol (miraLAX PACKET) 17 gm DAILY PO ; Start 03/01/19 at 09:00 Linagliptin (Tradjenta) 5 mg DAILY PO Last administered on 03/01/19at 09:34; Start 03/01/19 at 09:00 Sertraline HCl (Zoloft) 150 mg DAILY PO Last administered on 03/01/19at 09:23; Start 03/01/19 at 09:00 Non-Formulary Medication (Ubidecarenone (Coenzyme Q10)) 10 mg DAILY PO ; Start 03/01/19 at 09:00; Stop 02/28/19 at 18:20; Status DC Perflutren Protein Type A Microsphe (Optison) 0.66 mg 1X ONCE IV Last administered on 03/01/19at 08:49; Start 03/01/19 at 08:45; Stop 03/01/19 at 08:46; Status DC Bumetanide (Bumex) 1 mg BID94 PO ; Start 03/01/19 at 16:00 Active Scripts Active Reported Fish Oil 1,000 mg Softgel (Oneco-3S/Dha/Epa/Fish Oil) 1 Each Capsule 2 Each PO BID Coenzyme Q10 (Ubidecarenone) 10 Mg Capsule 10 Mg PO DAILY Aspirin Ec (Aspirin) 81 Mg Tablet.dr 1 Tab PO DAILY Ascorbic Acid 500 Mg Tablet 1,000 Mg PO DAILY Humalog (Insulin Lispro) 100 Unit/1 Ml Cartridge 25 Unit SQ TIDWMEALS Levemir Flextouch (Insulin Detemir) 100 Unit/1 Ml Insuln.pen 100 Unit SQ HS Polyethylene Glycol 3350 2,500 Gm Powder 17 Gm PO DAILY Timoptic 0.5% (Timolol Maleate) 10 Ml Drops 1 Drop EACHEYE BID 30 Days Tramadol Hcl 50 Mg Tablet 50 Mg PO Q12HR PRN Flomax (Tamsulosin Hcl) 0.4 Mg Cap.er.24h 1 Cap PO HS Sertraline Hcl 100 Mg Tablet 150 Mg PO DAILY Onglyza (Saxagliptin Hcl) 5 Mg Tablet 2.5 Mg PO DAILY Lisinopril 20 Mg Tablet 1 Tab PO DAILY Latanoprost 2.5 Ml Drops 1 Drop OP HS Isosorbide Mononitrate Er (Isosorbide Mononitrate) 30 Mg Tab.er.24h 1 Tab PO DAILY Gabapentin 800 Mg Tablet 800 Mg PO BID Lasix (Furosemide) 40 Mg Tablet 40 Mg PO BID Digoxin 125 Mcg Tablet 125 Mcg PO DAILY Vitamin B-12 (Cyanocobalamin (Vitamin B-12)) 1,000 Mcg Tablet 1,000 Mcg PO DAILY Vitamin D3 (Cholecalciferol (Vitamin D3)) 1,000 Unit Tablet 2 Tab PO DAILY Coreg (Carvedilol) 25 Mg Tablet 50 Mg PO BIDWMEALS Refresh Optive Eye Drops (Carboxymethylcellulos/Glycerin) 15 Ml Drops 1 Drop EACHEYE QID Azopt (Brinzolamide) 10 Ml Drops.susp 1 Drop EACHEYE TID Atorvastatin Calcium 40 Mg Tablet 60 Mg PO HS PRN Amiodarone Hcl 200 Mg Tablet 1 Tab PO DAILY Allopurinol 100 Mg Tablet 1 Tab PO DAILY Vitals/I & O Vital Sign - Last 24 Hours 02/28/19 02/28/19 02/28/19 02/28/19 13:54 14:27 14:51 15:21 Temp 97.8 97.8 Pulse 81 64 59 60 Resp 19 19 20 21 B/P (MAP) 150/72 (98) 140/84 (102) 152/75 (100) 158/77 (104) Pulse Ox 94 88 96 93 O2 Delivery Room Air Room Air Nasal Cannula Nasal Cannula O2 Flow Rate 2.0 2.0 02/28/19 02/28/19 02/28/19 02/28/19 15:51 16:30 17:39 19:57 Temp 98.4 97.9 98.4 97.9 Pulse 60 68 80 Resp 21 18 18 B/P (MAP) 139/63 (88) 146/78 (100) 180/78 (112) Pulse Ox 94 92 5 O2 Delivery Nasal Cannula Nasal Cannula Nasal Cannula Nasal Cannula O2 Flow Rate 2.0 2.0 2.0 2.0 02/28/19 02/28/19 03/01/19 03/01/19 20:01 22:02 03:12 07:00 Temp 97.7 97.8 97.7 97.8 Pulse 59 78 60 Resp 18 20 20 B/P (MAP) 157/81 (106) 159/86 (110) 144/75 (98) Pulse Ox 97 95 94 O2 Delivery Nasal Cannula Nasal Cannula Nasal Cannula Nasal Cannula O2 Flow Rate 2.0 2.0 2.0 2.0 03/01/19 03/01/19 03/01/19 03/01/19 09:29 09:29 09:31 09:31 Pulse 60 60 60 60 B/P (MAP) 145/86 145/86 145/86 145/86 03/01/19 09:33 Pulse 60 B/P (MAP) 145/86 Intake and Output 02/28/19 02/28/19 03/01/19 15:00 23:00 07:00 Intake Total 360 ml 600 ml Output Total 1100 ml 1550 ml Balance -740 ml -950 ml Problem List Problems Medical Problems: (1) Acute exacerbation of CHF (congestive heart failure) Status: Acute (2) FILOMENA (acute kidney injury) Status: Acute Assessment Chronic anemia- most likely multifactorial in etiology, AVMS and polyps lead differential. CPM SAMMIE GORDON MD Mar 01, 2019 10:42
[2019-03-01 11:00] VITALS: BP 143/74
--- NOTE | 2019-03-01 11:26 | PDOC2 ---
CONSULT Date of Consult Date of Consult DATE: 03/01/19 TIME: 11:18 Reason for Consult Reason for Consult: FILOMENA Source Source: Chart review, Patient History of Present Illness Reason for Visit: Pt is a 69 yo C male admitted for complains of shortness of breath, gradually increasing in the last 2 weeks. Reports increasing leg swelling and feeling tight around girth thinking that he has ascites and has gained about 16 pounds. Positive for orthopnea, PND. He does have CPAP for JASSON. He has been complains with his medications. He has directions from his call center director at [facility] Dr. Dawson to take extra dosing of lasix which he did for 3-4 days of 80 mg tid. His UOP has not been better with it and his SOA was worse. No palpitations chest pain. He remembered his EF 19% . He also has CKD for last 4-6 years, baseline Cr 1.8, follows with Dr. 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[facility] [place] Denies urinary complaints , good UOP, No NSAID use Past Medical History Cardiovascular: CAD, CHF, HTN, Hyperlipidemia Pulmonary: Other (JASSON) CENTRAL NERVOUS SYSTEM: Other (sciatica) GI: GI bleed, Peptic Ulcer disease (h pylori), Other (colon polyps) Heme/Onc: Anemia NOS Hepatobiliary: No pertinent hx Psych: No pertinent hx Musculoskeletal: low back pain, Osteoarthritis Rheumatologic: Gout Infectious disease: No pertinent hx ENT: Other (glaucoma) Renal/: Chronic renal insuff Endocrine: Diabetes Dermatology: No pertinent hx Past Surgical History Past Surgical History: Pacemaker (AICD), CABG Family History Family History: Diabetes Social History Social History: Grandparents No ALCOHOL: occassional Drugs: None Lives: with Family Current Problem List Problem List Problems Medical Problems: (1) Acute exacerbation of CHF (congestive heart failure) Status: Acute (2) FILOMENA (acute kidney injury) Status: Acute Current Medications Current Medications Current Medications Sodium Chloride (Normal Saline Flush) 3 ml QSHIFT PRN IV AFTER MEDS AND BLOOD DRAWS; Start 02/28/19 at 15:45 Ondansetron HCl (Zofran) 4 mg PRN Q4HRS PRN IV NAUSEA/VOMITING; Start 02/28/19 at 15:45 Acetaminophen (Tylenol) 650 mg PRN Q4HRS PRN PO TEMP OVER 100.4F OR MILD PAIN; Start 02/28/19 at 15:45 Clonidine HCl (Catapres) 0.1 mg PRN Q6HRS PRN PO SBP>160 OR DBP>90; Start 02/28/19 at 15:45 Docusate Sodium (Colace) 100 mg PRN BID PRN PO CONSTIPATION; Start 02/28/19 at 15:45 Albuterol Sulfate (Ventolin Neb Soln) 2.5 mg PRN Q4HRS PRN NEB SHORTNESS OF BREATH; Start 02/28/19 at 15:45 Guaifenesin (Robitussin) 200 mg PRN Q4HRS PRN PO COUGH; Start 02/28/19 at 15:45 Enoxaparin Sodium (Lovenox 40mg Syringe) 40 mg DAILY SQ ; Start 03/01/19 at 16:00 Insulin Human Lispro (HumaLOG) 0-5 UNITS TIDWMEALS SQ Last administered on 02/28/19at 17:33; Start 02/28/19 at 17:00 Dextrose (Dextrose 50%-Water Syringe) 12.5 gm PRN Q15MIN PRN IV SEE COMMENTS; Start 02/28/19 at 16:00 Dextrose 250 ml PRN Q15MIN PRN IV SEE COMMENTS; Start 02/28/19 at 16:00 Pantoprazole Sodium (Protonix) 40 mg DAILYAC PO ; Start 02/28/19 at 16:30 Polyethylene Glycol (miraLAX PACKET) 17 gm PRN DAILY PRN PO CONSTIPATION; Start 02/28/19 at 16:30 Allopurinol (Zyloprim) 100 mg DAILY PO Last administered on 03/01/19at 09:21; Start 03/01/19 at 09:00 Amiodarone HCl (Cordarone) 200 mg DAILY PO Last administered on 03/01/19at 09:29; Start 03/01/19 at 09:00 Ascorbic Acid (Vitamin C) 1,000 mg DAILY PO Last administered on 03/01/19at 09:25; Start 03/01/19 at 09:00 Aspirin (Ecotrin) 81 mg DAILY PO Last administered on 03/01/19at 09:21; Start 03/01/19 at 09:00 Atorvastatin Calcium (Lipitor) 60 mg QHS PO Last administered on 02/28/19at 21:35; Start 02/28/19 at 21:00 Vitamin D (Vitamin D3) 2,000 unit DAILY PO Last administered on 03/01/19 09:20; Start 03/01/19 at 09:00 Cyanocobalamin (Vitamin B-12) 1,000 mcg DAILY PO Last administered on 03/01/19 09:23; Start 03/01/19 at 09:00 Digoxin (Lanoxin) 125 mcg DAILY PO Last administered on 03/01/19 09:29; Start 03/01/19 at 09:00 Furosemide (Lasix) 40 mg BID PO Last administered on 03/01/19 09:30; Start 02/28/19 at 21:00; Stop 03/01/19 at 10:06; Status DC Isosorbide Mononitrate (Imdur) 30 mg DAILY PO Last administered on 03/01/19 09:33; Start 03/01/19 at 09:00 Latanoprost (Xalatan) 1 drop HS OU Last administered on 02/28/19 21:36; Start 02/28/19 at 21:00 Lisinopril (Prinivil) 20 mg DAILY PO Last administered on 03/01/19 09:31; Start 03/01/19 at 09:00; Stop 03/01/19 at 10:06; Status DC Tamsulosin HCl (Flomax) 0.4 mg HS PO Last administered on 02/28/19 21:37; Start 02/28/19 at 21:00 Timolol Maleate (Timoptic 0.5% Ophth) 1 drop BID OU Last administered on 03/01/19 09:37; Start 02/28/19 at 21:00 Tramadol HCl (Ultram) 50 mg PRN Q12HR PRN PO PAIN; Start 02/28/19 at 18:15 Dorzolamide HCl (Trusopt) 1 drop TID OU Last administered on 03/01/19 09:39; Start 02/28/19 at 21:00 Artificial Tears (Artificial Tears) 1 drop QID OU Last administered on 02/28/19 21:40; Start 02/28/19 at 21:00 Carvedilol (Coreg) 50 mg BIDWMEALS PO Last administered on 03/01/19 09:31; Start 03/01/19 at 08:00 Gabapentin (Neurontin) 800 mg BID PO Last administered on 03/01/19at 09:22; Start 02/28/19 at 21:00 Insulin Glargine (Lantus Syringe) 100 unit QHS SQ Last administered on 02/28/19at 21:53; Start 02/28/19 at 21:00 Insulin Human Lispro (HumaLOG) 25 units TIDWMEALS SQ ; Start 03/01/19 at 08:00 Fish Oil (Fish Oil) 2,000 mg BID PO Last administered on 03/01/19at 09:20; Start 02/28/19 at 21:00 Polyethylene Glycol (miraLAX PACKET) 17 gm DAILY PO ; Start 03/01/19 at 09:00 Linagliptin (Tradjenta) 5 mg DAILY PO Last administered on 03/01/19at 09:34; Start 03/01/19 at 09:00 Sertraline HCl (Zoloft) 150 mg DAILY PO Last administered on 03/01/19at 09:23; Start 03/01/19 at 09:00 Non-Formulary Medication (Ubidecarenone (Coenzyme Q10)) 10 mg DAILY PO ; Start 03/01/19 at 09:00; Stop 02/28/19 at 18:20; Status DC Perflutren Protein Type A Microsphe (Optison) 0.66 mg 1X ONCE IV Last administered on 03/01/19at 08:49; Start 03/01/19 at 08:45; Stop 03/01/19 at 08:46; Status DC Bumetanide (Bumex) 1 mg BID94 PO ; Start 03/01/19 at 16:00 Active Scripts Active Reported Fish Oil 1,000 mg Softgel ([place]wood-3S/Dha/Epa/Fish Oil) 1 Each Capsule 2 Each PO BID Coenzyme Q10 (Ubidecarenone) 10 Mg Capsule 10 Mg PO DAILY Aspirin Ec (Aspirin) 81 Mg Tablet.dr 1 Tab PO DAILY Ascorbic Acid 500 Mg Tablet 1,000 Mg PO DAILY Humalog (Insulin Lispro) 100 Unit/1 Ml Cartridge 25 Unit SQ TIDWMEALS Levemir Flextouch (Insulin Detemir) 100 Unit/1 Ml Insuln.pen 100 Unit SQ HS Polyethylene Glycol 3350 2,500 Gm Powder 17 Gm PO DAILY Timoptic 0.5% (Timolol Maleate) 10 Ml Drops 1 Drop EACHEYE BID 30 Days Tramadol Hcl 50 Mg Tablet 50 Mg PO Q12HR PRN Flomax (Tamsulosin Hcl) 0.4 Mg Cap.er.24h 1 Cap PO HS Sertraline Hcl 100 Mg Tablet 150 Mg PO DAILY Onglyza (Saxagliptin Hcl) 5 Mg Tablet 2.5 Mg PO DAILY Lisinopril 20 Mg Tablet 1 Tab PO DAILY Latanoprost 2.5 Ml Drops 1 Drop OP HS Isosorbide Mononitrate Er (Isosorbide Mononitrate) 30 Mg Tab.er.24h 1 Tab PO DAILY Gabapentin 800 Mg Tablet 800 Mg PO BID Lasix (Furosemide) 40 Mg Tablet 40 Mg PO BID Digoxin 125 Mcg Tablet 125 Mcg PO DAILY Vitamin B-12 (Cyanocobalamin (Vitamin B-12)) 1,000 Mcg Tablet 1,000 Mcg PO DAILY Vitamin D3 (Cholecalciferol (Vitamin D3)) 1,000 Unit Tablet 2 Tab PO DAILY Coreg (Carvedilol) 25 Mg Tablet 50 Mg PO BIDWMEALS Refresh Optive Eye Drops (Carboxymethylcellulos/Glycerin) 15 Ml Drops 1 Drop EACHEYE QID Azopt (Brinzolamide) 10 Ml Drops.susp 1 Drop EACHEYE TID Atorvastatin Calcium 40 Mg Tablet 60 Mg PO HS PRN Amiodarone Hcl 200 Mg Tablet 1 Tab PO DAILY Allopurinol 100 Mg Tablet 1 Tab PO DAILY Allergies Allergies: Coded Allergies: No Known Drug Allergies (Unverified , 02/28/19) ROS Review of System Per HPI Physical Exam Physical Exam General:, No acute distress HEENT: Mucous membr. moist/pink, CPAP Neck Supple Lungs: Decreased at bases Heart: Regular rate Normal S1, Normal S2, systolic murmur+ Abdomen: Soft, No tenderness,obese Extremities: trace LE edema Skin: No rash Neuro: Grossly normal Psych/Mental Status: Mental status NL, Mood NL No Jimenez, No CVA or SP tenderness Vital Signs Vital Signs Date Time Temp Pulse Resp B/P (MAP) Pulse Ox O2 Delivery O2 Flow Rate FiO2 03/01/19 09:33 60 145/86 03/01/19 07:00 97.8 20 94 Nasal Cannula 2.0 97.8 Assessment & Plan FILOMENA - On CKD, Cardiorenal Improving Cr from 2.6 to 2.1 Agree with Holding lisinopril E-Lytes stable, Currently no emergent indication for HD Daily standing wt, I/O, Supportive care CKD - Baseline Cr 1.8 per Pt, follows with Administrative Underwriter 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 at [place], [place] - q 6 Months ? Lt kidney Multicystic structure is present in the left upper abdomen. Etiology is uncertain. This measures at least 21 cm in diameter. This could represent a multicystic, or markedly hydronephrotic left kidney. Recommend CT scan abdomen without contrast (Or Obtain records from his Primary Administrative Underwriter to establish if Chronic) Exophytic cyst right kidney 2.6 cm. Hypernatremia- Monitor , avoid Overdiuresis Acute on chronic systolic/diastolic CHF with severe cardiomyopathy On IV Diuretics, Managed by cardiology 2. FILOMENA on CKD: unclear baseline. UOP improving. 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 HTN: labile episodes DM2: on insulin JASSON: on CPAP at home Labs Labs Laboratory Tests Test 02/28/19 13:59 02/28/19 14:03 02/28/19 15:45 02/28/19 17:12 Thyroid Stimulating Hormone (TSH) 8.052 uIU/mL (0.358-3.74) White Blood Count 9.3 x10^3/uL (4.0-11.0) Red Blood Count 3.55 x10^6/uL (4.30-5.70) Hemoglobin 10.7 g/dL (13.0-17.5) Hematocrit 32.2 % (39.0-53.0) Mean Corpuscular Volume 91 fL (79-100) Mean Corpuscular Hemoglobin 30 pg (25-35) Mean Corpuscular Hemoglobin Concent 33 g/dL (31-37) Red Cell Distribution Width 19.6 % (11.5-14.5) Platelet Count 188 x10^3/uL (140-400) Neutrophils (%) (Auto) 71 % (31-73) Lymphocytes (%) (Auto) 9 % (24-48) Monocytes (%) (Auto) 12 % (0-9) Eosinophils (%) (Auto) 6 % (0-3) Basophils (%) (Auto) 1 % (0-3) Neutrophils # (Auto) 6.6 x10^3/uL (1.8-7.7) Lymphocytes # (Auto) 0.9 x10^3/uL (1.0-4.8) Monocytes # (Auto) 1.1 x10^3/uL (0.0-1.1) Eosinophils # (Auto) 0.6 x10^3/uL (0.0-0.7) Basophils # (Auto) 0.1 x10^3/uL (0.0-0.2) Prothrombin Time 16.9 SEC (11.7-14.0) Prothromb Time International Ratio 1.4 (0.8-1.1) Activated Partial Thromboplast Time 35 SEC (24-38) Sodium Level 147 mmol/L (136-145) Potassium Level 4.3 mmol/L (3.5-5.1) Chloride Level 105 mmol/L (98-107) Carbon Dioxide Level 33 mmol/L (21-32) Anion Gap 9 (6-14) Blood Urea Nitrogen 69 mg/dL (8-26) Creatinine 2.6 mg/dL (0.7-1.3) Estimated GFR (Cockcroft-Gault) 24.5 BUN/Creatinine Ratio 27 (6-20) Glucose Level 180 mg/dL (70-99) Calcium Level 9.0 mg/dL (8.5-10.1) Total Bilirubin 1.0 mg/dL (0.2-1.0) Aspartate Amino Transf (AST/SGOT) 38 U/L (15-37) Alanine Aminotransferase (ALT/SGPT) 48 U/L (16-63) Alkaline Phosphatase 167 U/L (46-116) Creatine Kinase 139 U/L (39-308) 138 U/L (39-308) Creatine Kinase MB (Mass) 2.7 ng/mL (0.0-3.6) 2.6 ng/mL (0.0-3.6) Creatine Kinase MB Relative Index 1.9 % (0-4) 1.9 % (0-4) Troponin I Quantitative < 0.017 ng/mL (0.000-0.055) < 0.017 ng/mL (0.000-0.055) QL-Rin-Q-Type Natriuretic Peptide 4372 pg/mL (0-124) Total Protein 8.1 g/dL (6.4-8.2) Albumin 3.1 g/dL (3.4-5.0) Albumin/Globulin Ratio 0.6 (1.0-1.7) Iron Level 68 ug/dL (65-175) Total Iron Binding Capacity 295 ug/dL (250-450) Iron Saturation 23 % (15-34) Vitamin B12 Level 1468 pg/mL (247-911) Free Thyroxine 0.80 ng/dL (0.76-1.46) Glucose (Fingerstick) 209 mg/dL (70-99) Test 02/28/19 18:54 02/28/19 21:34 03/01/19 05:15 03/01/19 05:35 Creatine Kinase 115 U/L (39-308) Creatine Kinase MB (Mass) 2.8 ng/mL (0.0-3.6) Creatine Kinase MB Relative Index 2.4 % (0-4) Troponin I Quantitative < 0.017 ng/mL (0.000-0.055) Glucose (Fingerstick) 202 mg/dL (70-99) White Blood Count 8.2 x10^3/uL (4.0-11.0) Red Blood Count 3.37 x10^6/uL (4.30-5.70) Hemoglobin 10.1 g/dL (13.0-17.5) Hematocrit 30.8 % (39.0-53.0) Mean Corpuscular Volume 91 fL (79-100) Mean Corpuscular Hemoglobin 30 pg (25-35) Mean Corpuscular Hemoglobin Concent 33 g/dL (31-37) Red Cell Distribution Width 19.3 % (11.5-14.5) Platelet Count 172 x10^3/uL (140-400) Neutrophils (%) (Auto) 67 % (31-73) Lymphocytes (%) (Auto) 13 % (24-48) Monocytes (%) (Auto) 10 % (0-9) Eosinophils (%) (Auto) 9 % (0-3) Basophils (%) (Auto) 1 % (0-3) Neutrophils # (Auto) 5.5 x10^3/uL (1.8-7.7) Lymphocytes # (Auto) 1.1 x10^3/uL (1.0-4.8) Monocytes # (Auto) 0.8 x10^3/uL (0.0-1.1) Eosinophils # (Auto) 0.7 x10^3/uL (0.0-0.7) Basophils # (Auto) 0.1 x10^3/uL (0.0-0.2) Sodium Level 148 mmol/L (136-145) Potassium Level 3.7 mmol/L (3.5-5.1) Chloride Level 107 mmol/L (98-107) Carbon Dioxide Level 34 mmol/L (21-32) Anion Gap 7 (6-14) Blood Urea Nitrogen 64 mg/dL (8-26) Creatinine 2.1 mg/dL (0.7-1.3) Estimated GFR (Cockcroft-Gault) 31.3 BUN/Creatinine Ratio 30 (6-20) Glucose Level 89 mg/dL (70-99) Calcium Level 9.1 mg/dL (8.5-10.1) Total Bilirubin 1.0 mg/dL (0.2-1.0) Aspartate Amino Transf (AST/SGOT) 28 U/L (15-37) Alanine Aminotransferase (ALT/SGPT) 39 U/L (16-63) Alkaline Phosphatase 146 U/L (46-116) Total Protein 7.9 g/dL (6.4-8.2) Albumin 3.0 g/dL (3.4-5.0) Albumin/Globulin Ratio 0.6 (1.0-1.7) Urine Collection Type Unknown Urine Color Yellow Urine Clarity Clear Urine pH 7.0 Urine Specific [place] 1.010 Urine Protein 30 mg/dL (NEG-TRACE) Urine Glucose (UA) Negative mg/dL (NEG) Urine Ketones (Stick) Negative mg/dL (NEG) Urine Blood Negative (NEG) Urine Nitrite Negative (NEG) Urine Bilirubin Negative (NEG) Urine Urobilinogen Dipstick 1.0 mg/dL (0.2 mg/dL) Urine Leukocyte Esterase Negative (NEG) Urine RBC Occ /HPF (0-2) Urine WBC 0 /HPF (0-4) Urine Bacteria 0 /HPF (0-FEW) Test 03/01/19 07:11 Glucose (Fingerstick) 76 mg/dL (70-99) Laboratory Tests Test 02/28/19 13:59 02/28/19 14:03 02/28/19 15:45 02/28/19 17:12 Thyroid Stimulating Hormone (TSH) 8.052 uIU/mL (0.358-3.74) White Blood Count 9.3 x10^3/uL (4.0-11.0) Red Blood Count 3.55 x10^6/uL (4.30-5.70) Hemoglobin 10.7 g/dL (13.0-17.5) Hematocrit 32.2 % (39.0-53.0) Mean Corpuscular Volume 91 fL (79-100) Mean Corpuscular Hemoglobin 30 pg (25-35) Mean Corpuscular Hemoglobin Concent 33 g/dL (31-37) Red Cell Distribution Width 19.6 % (11.5-14.5) Platelet Count 188 x10^3/uL (140-400) Neutrophils (%) (Auto) 71 % (31-73) Lymphocytes (%) (Auto) 9 % (24-48) Monocytes (%) (Auto) 12 % (0-9) Eosinophils (%) (Auto) 6 % (0-3) Basophils (%) (Auto) 1 % (0-3) Neutrophils # (Auto) 6.6 x10^3/uL (1.8-7.7) Lymphocytes # (Auto) 0.9 x10^3/uL (1.0-4.8) Monocytes # (Auto) 1.1 x10^3/uL (0.0-1.1) Eosinophils # (Auto) 0.6 x10^3/uL (0.0-0.7) Basophils # (Auto) 0.1 x10^3/uL (0.0-0.2) Prothrombin Time 16.9 SEC (11.7-14.0) Prothromb Time International Ratio 1.4 (0.8-1.1) Activated Partial Thromboplast Time 35 SEC (24-38) Sodium Level 147 mmol/L (136-145) Potassium Level 4.3 mmol/L (3.5-5.1) Chloride Level 105 mmol/L (98-107) Carbon Dioxide Level 33 mmol/L (21-32) Anion Gap 9 (6-14) Blood Urea Nitrogen 69 mg/dL (8-26) Creatinine 2.6 mg/dL (0.7-1.3) Estimated GFR (Cockcroft-Gault) 24.5 BUN/Creatinine Ratio 27 (6-20) Glucose Level 180 mg/dL (70-99) Calcium Level 9.0 mg/dL (8.5-10.1) Total Bilirubin 1.0 mg/dL (0.2-1.0) Aspartate Amino Transf (AST/SGOT) 38 U/L (15-37) Alanine Aminotransferase (ALT/SGPT) 48 U/L (16-63) Alkaline Phosphatase 167 U/L (46-116) Creatine Kinase 139 U/L (39-308) 138 U/L (39-308) Creatine Kinase MB (Mass) 2.7 ng/mL (0.0-3.6) 2.6 ng/mL (0.0-3.6) Creatine Kinase MB Relative Index 1.9 % (0-4) 1.9 % (0-4) Troponin I Quantitative < 0.017 ng/mL (0.000-0.055) < 0.017 ng/mL (0.000-0.055) RG-Ioo-R-Type Natriuretic Peptide 4372 pg/mL (0-124) Total Protein 8.1 g/dL (6.4-8.2) Albumin 3.1 g/dL (3.4-5.0) Albumin/Globulin Ratio 0.6 (1.0-1.7) Iron Level 68 ug/dL (65-175) Total Iron Binding Capacity 295 ug/dL (250-450) Iron Saturation 23 % (15-34) Vitamin B12 Level 1468 pg/mL (247-911) Free Thyroxine 0.80 ng/dL (0.76-1.46) Glucose (Fingerstick) 209 mg/dL (70-99) Test 02/28/19 18:54 02/28/19 21:34 03/01/19 05:15 03/01/19 05:35 Creatine Kinase 115 U/L (39-308) Creatine Kinase MB (Mass) 2.8 ng/mL (0.0-3.6) Creatine Kinase MB Relative Index 2.4 % (0-4) Troponin I Quantitative < 0.017 ng/mL (0.000-0.055) Glucose (Fingerstick) 202 mg/dL (70-99) White Blood Count 8.2 x10^3/uL (4.0-11.0) Red Blood Count 3.37 x10^6/uL (4.30-5.70) Hemoglobin 10.1 g/dL (13.0-17.5) Hematocrit 30.8 % (39.0-53.0) Mean Corpuscular Volume 91 fL (79-100) Mean Corpuscular Hemoglobin 30 pg (25-35) Mean Corpuscular Hemoglobin Concent 33 g/dL (31-37) Red Cell Distribution Width 19.3 % (11.5-14.5) Platelet Count 172 x10^3/uL (140-400) Neutrophils (%) (Auto) 67 % (31-73) Lymphocytes (%) (Auto) 13 % (24-48) Monocytes (%) (Auto) 10 % (0-9) Eosinophils (%) (Auto) 9 % (0-3) Basophils (%) (Auto) 1 % (0-3) Neutrophils # (Auto) 5.5 x10^3/uL (1.8-7.7) Lymphocytes # (Auto) 1.1 x10^3/uL (1.0-4.8) Monocytes # (Auto) 0.8 x10^3/uL (0.0-1.1) Eosinophils # (Auto) 0.7 x10^3/uL (0.0-0.7) Basophils # (Auto) 0.1 x10^3/uL (0.0-0.2) Sodium Level 148 mmol/L (136-145) Potassium Level 3.7 mmol/L (3.5-5.1) Chloride Level 107 mmol/L (98-107) Carbon Dioxide Level 34 mmol/L (21-32) Anion Gap 7 (6-14) Blood Urea Nitrogen 64 mg/dL (8-26) Creatinine 2.1 mg/dL (0.7-1.3) Estimated GFR (Cockcroft-Gault) 31.3 BUN/Creatinine Ratio 30 (6-20) Glucose Level 89 mg/dL (70-99) Calcium Level 9.1 mg/dL (8.5-10.1) Total Bilirubin 1.0 mg/dL (0.2-1.0) Aspartate Amino Transf (AST/SGOT) 28 U/L (15-37) Alanine Aminotransferase (ALT/SGPT) 39 U/L (16-63) Alkaline Phosphatase 146 U/L (46-116) Total Protein 7.9 g/dL (6.4-8.2) Albumin 3.0 g/dL (3.4-5.0) Albumin/Globulin Ratio 0.6 (1.0-1.7) Urine Collection Type Unknown Urine Color Yellow Urine Clarity Clear Urine pH 7.0 Urine Specific [place] 1.010 Urine Protein 30 mg/dL (NEG-TRACE) Urine Glucose (UA) Negative mg/dL (NEG) Urine Ketones (Stick) Negative mg/dL (NEG) Urine Blood Negative (NEG) Urine Nitrite Negative (NEG) Urine Bilirubin Negative (NEG) Urine Urobilinogen Dipstick 1.0 mg/dL (0.2 mg/dL) Urine Leukocyte Esterase Negative (NEG) Urine RBC Occ /HPF (0-2) Urine WBC 0 /HPF (0-4) Urine Bacteria 0 /HPF (0-FEW) Test 03/01/19 07:11 Glucose (Fingerstick) 76 mg/dL (70-99) Review All relevant outside records, renal labs, imaging studies, telemetry/EKG's were reviewed. Images Images Renal US- The pancreas is not visualized secondary to overlying gas filled bowel. The aorta and IVC are poorly visualized. The liver is enlarged measuring 23 cm longitudinally. No focal hepatic lesion is identified on provided imaging. Hepatic echotexture appears be grossly normal. The common bile duct is dilated to 1.1 cm. The gallbladder however surgically absent this therefore may represent reservoir effect/postoperative change. The right kidney measures 15 cm longitudinally. There is an exophytic cyst arising from the right kidney measuring 2.6 cm. The spleen is enlarged measuring 13.5 cm. Multicystic structure is present in the left upper abdomen. Etiology is uncertain. This measures at least 21 cm in diameter. This could represent a multicystic, or markedly hydronephrotic left kidney. Evaluation by ultrasound is limited. CAMILLE WEISS MD Mar 01, 2019 11:26
--- NOTE | 2019-03-01 14:04 | NUR ---
SS following for discharge planning. SS reviewed pt chart. Pt is from home with spouse and is currently requiring oxygen. SS will continue to follow for discharge planning.
[2019-03-01 15:00] VITALS: BP 133/69
[2019-03-01] MEDS ORDERED: ENOXAPARIN 40 MG/0.4 ML SYRINGE. SQ SCH ×2 (16:00)
[2019-03-01] MEDS: BUMETANIDE 1 MG TABLET. PO SCH (16:12)
[2019-03-01 17:08] LABS: DIG 1.7 ng/mL (0.9-2.0)
[2019-03-01 19:30] VITALS: BP 127/66
[2019-03-01] MEDS: LATANOPROST 0.005% OPHTH SOLUTION 2.5ML BOTTLE. OU SCH (20:38)
[2019-03-01] MEDS: TAMSULOSIN 0.4 MG CAP.ER.24H. PO SCH (20:42)
[2019-03-01] MEDS: ATORVASTATIN CALCIUM 40 MG TABLET. PO SCH (20:42)
[2019-03-01] MEDS: INSULIN GLARGINE SYRINGE. SQ SCH (20:46)
[2019-03-01 23:08] VITALS: BP 146/93
[2019-03-02 02:45] VITALS: BP 144/85
[2019-03-02 04:56] LABS: BASO # 0.1 x10^3/uL (0.0-0.2); BASO % 2 % (0-3); EOS # 0.7 x10^3/uL (0.0-0.7); EOS % 9 % (0-3); HEMATOCRIT 33.6 % (39.0-53.0); LYMPH # 1.1 x10^3/uL (1.0-4.8); LYMPH % 13 % (24-48); MEAN CORPUSCULAR HEMOGLOBIN 30 pg (25-35); MEAN CORPUSCULAR HGB CONC 33 g/dL (31-37); MEAN CORPUSCULAR VOLUME 92 fL (79-100); MONO # 0.8 x10^3/uL (0.0-1.1); MONO % 10 % (0-9); NEUT # 5.4 x10^3/uL (1.8-7.7); NEUT % 67 % (31-73); PLATELET COUNT 191 x10^3/uL (140-400); RED BLOOD COUNT 3.66 x10^6/uL (4.30-5.70); RED CELL DISTRIBUTION WIDTH 19.4 % (11.5-14.5); WHITE BLOOD COUNT 8.1 x10^3/uL (4.0-11.0)
[2019-03-02 05:23] LABS: ALBUMIN 3.3 g/dL (3.4-5.0); ALBUMIN/GLOBULIN RATIO 0.6 (1.0-1.7); CALCIUM 9.1 mg/dL (8.5-10.1); CREATININE 2.2 mg/dL (0.7-1.3); GFR 29.7; POTASSIUM 3.9 mmol/L (3.5-5.1); TOTAL PROTEIN 8.6 g/dL (6.4-8.2)
[2019-03-02 07:00] VITALS: BP 151/77
[2019-03-02] MEDS: PANTOPRAZOLE 40 MG TABLET.DR. PO SCH (07:30)
[2019-03-02] MEDS: CARVEDILOL 12.5 MG TABLET. PO SCH (07:55)
[2019-03-02] MEDS: SERTRALINE 50 MG TABLET. PO SCH (07:56)
[2019-03-02] MEDS: CHOLECALCIFEROL (VITAMIN D3) 1,000 UNIT TABLET PO SCH (07:57)
[2019-03-02] MEDS: ASPIRIN ENTERIC COATED 81 MG TABLET.DR. PO SCH (07:57)
[2019-03-02] MEDS: OMEGA-3 FATTY ACIDS/FISH OIL 1,000 MG CAPSULE. PO SCH (07:58)
[2019-03-02] MEDS: GABAPENTIN 400 MG CAPSULE. PO SCH (07:58)
[2019-03-02] MEDS: ASCORBIC ACID 500 MG TABLET PO SCH (07:59)
[2019-03-02] MEDS: CYANOCOBALAMIN (VITAMIN B-12) 1,000 MCG TABLET. PO SCH (07:59)
[2019-03-02] MEDS: AMIODARONE HCL 200 MG TABLET. PO SCH (08:00)
[2019-03-02] MEDS: INSULIN LISPRO 300 UNITS/3 ML VIAL. SQ SCH ×2 (08:00)
[2019-03-02] MEDS: DIGOXIN 125 MCG TABLET. PO SCH (08:01)
[2019-03-02] MEDS: ALLOPURINOL 100 MG TABLET. PO SCH (08:01)
[2019-03-02] MEDS: BUMETANIDE 1 MG TABLET. PO SCH (08:02)
[2019-03-02] MEDS: ISOSORBIDE MONONITRATE ER 30 MG TAB.ER.24H PO SCH (08:02)
[2019-03-02] MEDS: LINAGLIPTIN 5 MG TABLET PO SCH (08:04)
[2019-03-02] MEDS: POLYVINYL ALCOHOL 1.4% OPHTH SOLUTION 15ML BOTTLE. OU SCH (08:07)
[2019-03-02] MEDS: TIMOLOL 0.5% OPHTH SOLUTION 5ML BOTTLE. OU SCH (08:07)
[2019-03-02] MEDS: DORZOLAMIDE 2% OPHTH SOLUTION 10ML BOTTLE. OU SCH (08:08)
[2019-03-02] MEDS: POLYETHYLENE GLYCOL 3350 17 GM PACKET. PO SCH (08:08)
--- NOTE | 2019-03-02 09:22 | PDOC ---
SUBJECTIVE ROS stable , Good UOP OBJECTIVE Vital Signs Vital Signs Date Time Temp Pulse Resp B/P (MAP) Pulse Ox O2 Delivery O2 Flow Rate FiO2 03/02/19 08:02 64 151/77 03/02/19 07:00 98.2 20 98 Room Air 98.2 03/01/19 11:00 2.0 I & 0 Intake and Output 03/02/19 06:59 Intake Total 1540 ml Output Total 3100 ml Balance -1560 ml Intake Oral 1540 ml Output Urine Total 3100 ml PHYSICAL EXAM Physical Exam General:, No acute distress HEENT: Mucous membr. moist/pink, CPAP Neck Supple Lungs: Decreased at bases Heart: Regular rate Normal S1, Normal S2, systolic murmur+ Abdomen: Soft, No tenderness,obese Extremities: trace LE edema Skin: No rash Neuro: Grossly normal Psych/Mental Status: Mental status NL, Mood NL No Jimenez, No CVA or SP tenderness DIAGNOSIS/ASSESSMENT Assessment & Plan FILOMENA - On CKD, Cardiorenal Peaked at 2.6 , Cr 2.2 Good UOP, holding Lisinopril Supportive care, monitor , CKD - Baseline Cr 1.8 per Pt, follows with [facility] 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 at [place], [place] - q 6 Months ? Lt kidney Multicystic structure is present in the left upper abdomen. Etiology is uncertain. This measures at least 21 cm in diameter. This could represent a multicystic, or markedly hydronephrotic left kidney. Recommend CT scan abdomen without contrast (Or Obtain records from his Primary [facility] to establish if Chronic) Exophytic cyst right kidney 2.6 cm. 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 COMMENT/RELEVANT DATA Meds Current Medications Medications (Trade) Dose Ordered Sig/Aaliyah Start Time Stop Time Status Last Admin Dose Admin Acetaminophen (Tylenol) 650 mg PRN Q4HRS PRN 02/28/19 15:45 Albuterol Sulfate (Ventolin Neb Soln) 2.5 mg PRN Q4HRS PRN 02/28/19 15:45 Allopurinol (Zyloprim) 100 mg DAILY 03/01/19 09:00 03/02/19 08:01 100 MG Amiodarone HCl (Cordarone) 200 mg DAILY 03/01/19 09:00 03/02/19 08:00 200 MG Artificial Tears (Artificial Tears) 1 drop QID 02/28/19 21:00 03/01/19 20:38 1 DROP Ascorbic Acid (Vitamin C) 1,000 mg DAILY 03/01/19 09:00 03/02/19 07:59 1,000 MG Aspirin (Ecotrin) 81 mg DAILY 03/01/19 09:00 03/02/19 07:57 81 MG Atorvastatin Calcium (Lipitor) 60 mg QHS 02/28/19 21:00 03/01/19 20:42 60 MG Bumetanide (Bumex) 1 mg [id number] 03/01/19 16:00 03/02/19 08:02 1 MG Carvedilol (Coreg) 50 mg BIDWMEALS 03/01/19 08:00 03/02/19 07:55 50 MG Clonidine HCl (Catapres) 0.1 mg PRN Q6HRS PRN 02/28/19 15:45 Cyanocobalamin (Vitamin B-12) 1,000 mcg DAILY 03/01/19 09:00 03/02/19 07:59 1,000 MCG Dextrose 250 ml PRN Q15MIN PRN 02/28/19 16:00 Dextrose (Dextrose 50%-Water Syringe) 12.5 gm PRN Q15MIN PRN 02/28/19 16:00 Digoxin (Lanoxin) 125 mcg DAILY 03/01/19 09:00 03/02/19 08:01 125 MCG Docusate Sodium (Colace) 100 mg PRN BID PRN 02/28/19 15:45 Dorzolamide HCl (Trusopt) 1 drop TID 02/28/19 21:00 03/02/19 08:08 1 DROP Enoxaparin Sodium (Lovenox 40mg Syringe) 40 mg Q24H 03/01/19 16:00 03/01/19 16:12 40 MG Fish Oil (Fish Oil) 2,000 mg BID 02/28/19 21:00 03/02/19 07:58 2,000 MG Furosemide (Lasix) 40 mg BID 02/28/19 21:00 03/01/19 10:06 DC 03/01/19 09:30 40 MG Gabapentin (Neurontin) 800 mg BID 02/28/19 21:00 03/02/19 07:58 800 MG Guaifenesin (Robitussin) 200 mg PRN Q4HRS PRN 02/28/19 15:45 Insulin Glargine (Lantus Syringe) 100 unit QHS 02/28/19 21:00 03/01/19 20:46 100 UNIT Insulin Human Lispro (HumaLOG) 25 units TIDWMEALS 03/01/19 08:00 03/01/19 17:26 25 UNITS Isosorbide Mononitrate (Imdur) 30 mg DAILY 03/01/19 09:00 03/02/19 08:02 30 MG Latanoprost (Xalatan) 1 drop HS 02/28/19 21:00 03/01/19 20:38 1 DROP Linagliptin (Tradjenta) 5 mg DAILY 03/01/19 09:00 03/02/19 08:04 5 MG Lisinopril (Prinivil) 20 mg DAILY 03/01/19 09:00 03/01/19 10:06 DC 03/01/19 09:31 20 MG Non-Formulary Medication (Ubidecarenone (Coenzyme Q10)) 10 mg DAILY 03/01/19 09:00 02/28/19 18:20 DC Ondansetron HCl (Zofran) 4 mg PRN Q4HRS PRN 02/28/19 15:45 Pantoprazole Sodium (Protonix) 40 mg DAILYAC 02/28/19 16:30 Perflutren Protein Type A Microsphe (Optison) 0.66 mg 1X ONCE 03/01/19 08:45 03/01/19 08:46 DC 03/01/19 08:49 0.66 MG Polyethylene Glycol (miraLAX PACKET) 17 gm DAILY 03/01/19 09:00 Sertraline HCl (Zoloft) 150 mg DAILY 03/01/19 09:00 03/02/19 07:56 150 MG Sodium Chloride (Normal Saline Flush) 3 ml QSHIFT PRN 02/28/19 15:45 Tamsulosin HCl (Flomax) 0.4 mg HS 02/28/19 21:00 03/01/19 20:42 0.4 MG Timolol Maleate (Timoptic 0.5% Oph) 1 drop BID 02/28/19 21:00 03/02/19 08:07 1 DROP Tramadol HCl (Ultram) 50 mg PRN Q12HR PRN 02/28/19 18:15 Vitamin D (Vitamin D3) 2,000 unit DAILY 03/01/19 09:00 03/02/19 07:57 2,000 UNIT Lab Laboratory Tests Test 03/01/19 11:38 03/01/19 13:09 03/01/19 16:45 03/01/19 16:52 Glucose (Fingerstick) 140 mg/dL (70-99) 118 mg/dL (70-99) 185 mg/dL (70-99) Digoxin Level 1.7 ng/mL (0.9-2.0) Digoxin Last Dose Date 03/01/19 Digoxin Last Dose Time 0930 Test 03/01/19 20:36 03/02/19 04:30 03/02/19 07:18 Glucose (Fingerstick) 181 mg/dL (70-99) 97 mg/dL (70-99) White Blood Count 8.1 x10^3/uL (4.0-11.0) Red Blood Count 3.66 x10^6/uL (4.30-5.70) Hemoglobin 11.0 g/dL (13.0-17.5) Hematocrit 33.6 % (39.0-53.0) Mean Corpuscular Volume 92 fL (79-100) Mean Corpuscular Hemoglobin 30 pg (25-35) Mean Corpuscular Hemoglobin Concent 33 g/dL (31-37) Red Cell Distribution Width 19.4 % (11.5-14.5) Platelet Count 191 x10^3/uL (140-400) Neutrophils (%) (Auto) 67 % (31-73) Lymphocytes (%) (Auto) 13 % (24-48) Monocytes (%) (Auto) 10 % (0-9) Eosinophils (%) (Auto) 9 % (0-3) Basophils (%) (Auto) 2 % (0-3) Neutrophils # (Auto) 5.4 x10^3/uL (1.8-7.7) Lymphocytes # (Auto) 1.1 x10^3/uL (1.0-4.8) Monocytes # (Auto) 0.8 x10^3/uL (0.0-1.1) Eosinophils # (Auto) 0.7 x10^3/uL (0.0-0.7) Basophils # (Auto) 0.1 x10^3/uL (0.0-0.2) Sodium Level 144 mmol/L (136-145) Potassium Level 3.9 mmol/L (3.5-5.1) Chloride Level 103 mmol/L (98-107) Carbon Dioxide Level 33 mmol/L (21-32) Anion Gap 8 (6-14) Blood Urea Nitrogen 62 mg/dL (8-26) Creatinine 2.2 mg/dL (0.7-1.3) Estimated GFR (Cockcroft-Gault) 29.7 BUN/Creatinine Ratio 28 (6-20) Glucose Level 135 mg/dL (70-99) Calcium Level 9.1 mg/dL (8.5-10.1) Total Bilirubin 1.0 mg/dL (0.2-1.0) Aspartate Amino Transf (AST/SGOT) 32 U/L (15-37) Alanine Aminotransferase (ALT/SGPT) 35 U/L (16-63) Alkaline Phosphatase 165 U/L (46-116) Total Protein 8.6 g/dL (6.4-8.2) Albumin 3.3 g/dL (3.4-5.0) Albumin/Globulin Ratio 0.6 (1.0-1.7) Results All relevant outside records, renal labs, imaging studies, telemetry/EKG's were reviewed. CAMILLE WEISS MD Mar 02, 2019 09:22
--- NOTE | 2019-03-02 10:44 | PDOC ---
G I PROGRESS NOTE Reason for Follow-up Anemia Subjective Feeling better with diuresis Physical Exam Lungs decreased BS CV S1 S2 ABD +BS, soft, mildly distended Review of Relevant I have reviewed the following items aria (where applicable) has been applied. Labs Laboratory Tests Test 02/28/19 13:59 02/28/19 14:03 02/28/19 15:45 02/28/19 17:12 Thyroid Stimulating Hormone (TSH) 8.052 uIU/mL (0.358-3.74) White Blood Count 9.3 x10^3/uL (4.0-11.0) Red Blood Count 3.55 x10^6/uL (4.30-5.70) Hemoglobin 10.7 g/dL (13.0-17.5) Hematocrit 32.2 % (39.0-53.0) Mean Corpuscular Volume 91 fL (79-100) Mean Corpuscular Hemoglobin 30 pg (25-35) Mean Corpuscular Hemoglobin Concent 33 g/dL (31-37) Red Cell Distribution Width 19.6 % (11.5-14.5) Platelet Count 188 x10^3/uL (140-400) Neutrophils (%) (Auto) 71 % (31-73) Lymphocytes (%) (Auto) 9 % (24-48) Monocytes (%) (Auto) 12 % (0-9) Eosinophils (%) (Auto) 6 % (0-3) Basophils (%) (Auto) 1 % (0-3) Neutrophils # (Auto) 6.6 x10^3/uL (1.8-7.7) Lymphocytes # (Auto) 0.9 x10^3/uL (1.0-4.8) Monocytes # (Auto) 1.1 x10^3/uL (0.0-1.1) Eosinophils # (Auto) 0.6 x10^3/uL (0.0-0.7) Basophils # (Auto) 0.1 x10^3/uL (0.0-0.2) Prothrombin Time 16.9 SEC (11.7-14.0) Prothromb Time International Ratio 1.4 (0.8-1.1) Activated Partial Thromboplast Time 35 SEC (24-38) Sodium Level 147 mmol/L (136-145) Potassium Level 4.3 mmol/L (3.5-5.1) Chloride Level 105 mmol/L (98-107) Carbon Dioxide Level 33 mmol/L (21-32) Anion Gap 9 (6-14) Blood Urea Nitrogen 69 mg/dL (8-26) Creatinine 2.6 mg/dL (0.7-1.3) Estimated GFR (Cockcroft-Gault) 24.5 BUN/Creatinine Ratio 27 (6-20) Glucose Level 180 mg/dL (70-99) Calcium Level 9.0 mg/dL (8.5-10.1) Total Bilirubin 1.0 mg/dL (0.2-1.0) Aspartate Amino Transf (AST/SGOT) 38 U/L (15-37) Alanine Aminotransferase (ALT/SGPT) 48 U/L (16-63) Alkaline Phosphatase 167 U/L (46-116) Creatine Kinase 139 U/L (39-308) 138 U/L (39-308) Creatine Kinase MB (Mass) 2.7 ng/mL (0.0-3.6) 2.6 ng/mL (0.0-3.6) Creatine Kinase MB Relative Index 1.9 % (0-4) 1.9 % (0-4) Troponin I Quantitative < 0.017 ng/mL (0.000-0.055) < 0.017 ng/mL (0.000-0.055) NX-Laa-Q-Type Natriuretic Peptide 4372 pg/mL (0-124) Total Protein 8.1 g/dL (6.4-8.2) Albumin 3.1 g/dL (3.4-5.0) Albumin/Globulin Ratio 0.6 (1.0-1.7) Iron Level 68 ug/dL (65-175) Total Iron Binding Capacity 295 ug/dL (250-450) Iron Saturation 23 % (15-34) Vitamin B12 Level 1468 pg/mL (247-911) Free Thyroxine 0.80 ng/dL (0.76-1.46) Glucose (Fingerstick) 209 mg/dL (70-99) Test 02/28/19 18:54 02/28/19 21:34 03/01/19 05:15 03/01/19 05:35 Creatine Kinase 115 U/L (39-308) Creatine Kinase MB (Mass) 2.8 ng/mL (0.0-3.6) Creatine Kinase MB Relative Index 2.4 % (0-4) Troponin I Quantitative < 0.017 ng/mL (0.000-0.055) Glucose (Fingerstick) 202 mg/dL (70-99) White Blood Count 8.2 x10^3/uL (4.0-11.0) Red Blood Count 3.37 x10^6/uL (4.30-5.70) Hemoglobin 10.1 g/dL (13.0-17.5) Hematocrit 30.8 % (39.0-53.0) Mean Corpuscular Volume 91 fL (79-100) Mean Corpuscular Hemoglobin 30 pg (25-35) Mean Corpuscular Hemoglobin Concent 33 g/dL (31-37) Red Cell Distribution Width 19.3 % (11.5-14.5) Platelet Count 172 x10^3/uL (140-400) Neutrophils (%) (Auto) 67 % (31-73) Lymphocytes (%) (Auto) 13 % (24-48) Monocytes (%) (Auto) 10 % (0-9) Eosinophils (%) (Auto) 9 % (0-3) Basophils (%) (Auto) 1 % (0-3) Neutrophils # (Auto) 5.5 x10^3/uL (1.8-7.7) Lymphocytes # (Auto) 1.1 x10^3/uL (1.0-4.8) Monocytes # (Auto) 0.8 x10^3/uL (0.0-1.1) Eosinophils # (Auto) 0.7 x10^3/uL (0.0-0.7) Basophils # (Auto) 0.1 x10^3/uL (0.0-0.2) Sodium Level 148 mmol/L (136-145) Potassium Level 3.7 mmol/L (3.5-5.1) Chloride Level 107 mmol/L (98-107) Carbon Dioxide Level 34 mmol/L (21-32) Anion Gap 7 (6-14) Blood Urea Nitrogen 64 mg/dL (8-26) Creatinine 2.1 mg/dL (0.7-1.3) Estimated GFR (Cockcroft-Gault) 31.3 BUN/Creatinine Ratio 30 (6-20) Glucose Level 89 mg/dL (70-99) Calcium Level 9.1 mg/dL (8.5-10.1) Total Bilirubin 1.0 mg/dL (0.2-1.0) Aspartate Amino Transf (AST/SGOT) 28 U/L (15-37) Alanine Aminotransferase (ALT/SGPT) 39 U/L (16-63) Alkaline Phosphatase 146 U/L (46-116) Total Protein 7.9 g/dL (6.4-8.2) Albumin 3.0 g/dL (3.4-5.0) Albumin/Globulin Ratio 0.6 (1.0-1.7) Urine Collection Type Unknown Urine Color Yellow Urine Clarity Clear Urine pH 7.0 Urine Specific Kennard 1.010 Urine Protein 30 mg/dL (NEG-TRACE) Urine Glucose (UA) Negative mg/dL (NEG) Urine Ketones (Stick) Negative mg/dL (NEG) Urine Blood Negative (NEG) Urine Nitrite Negative (NEG) Urine Bilirubin Negative (NEG) Urine Urobilinogen Dipstick 1.0 mg/dL (0.2 mg/dL) Urine Leukocyte Esterase Negative (NEG) Urine RBC Occ /HPF (0-2) Urine WBC 0 /HPF (0-4) Urine Bacteria 0 /HPF (0-FEW) Test 03/01/19 07:11 03/01/19 11:38 03/01/19 13:09 03/01/19 16:45 Glucose (Fingerstick) 76 mg/dL (70-99) 140 mg/dL (70-99) 118 mg/dL (70-99) Digoxin Level 1.7 ng/mL (0.9-2.0) Digoxin Last Dose Date 03/01/19 Digoxin Last Dose Time 929 Test 03/01/19 16:52 03/01/19 20:36 03/02/19 04:30 03/02/19 07:18 Glucose (Fingerstick) 185 mg/dL (70-99) 181 mg/dL (70-99) 97 mg/dL (70-99) White Blood Count 8.1 x10^3/uL (4.0-11.0) Red Blood Count 3.66 x10^6/uL (4.30-5.70) Hemoglobin 11.0 g/dL (13.0-17.5) Hematocrit 33.6 % (39.0-53.0) Mean Corpuscular Volume 92 fL (79-100) Mean Corpuscular Hemoglobin 30 pg (25-35) Mean Corpuscular Hemoglobin Concent 33 g/dL (31-37) Red Cell Distribution Width 19.4 % (11.5-14.5) Platelet Count 191 x10^3/uL (140-400) Neutrophils (%) (Auto) 67 % (31-73) Lymphocytes (%) (Auto) 13 % (24-48) Monocytes (%) (Auto) 10 % (0-9) Eosinophils (%) (Auto) 9 % (0-3) Basophils (%) (Auto) 2 % (0-3) Neutrophils # (Auto) 5.4 x10^3/uL (1.8-7.7) Lymphocytes # (Auto) 1.1 x10^3/uL (1.0-4.8) Monocytes # (Auto) 0.8 x10^3/uL (0.0-1.1) Eosinophils # (Auto) 0.7 x10^3/uL (0.0-0.7) Basophils # (Auto) 0.1 x10^3/uL (0.0-0.2) Sodium Level 144 mmol/L (136-145) Potassium Level 3.9 mmol/L (3.5-5.1) Chloride Level 103 mmol/L (98-107) Carbon Dioxide Level 33 mmol/L (21-32) Anion Gap 8 (6-14) Blood Urea Nitrogen 62 mg/dL (8-26) Creatinine 2.2 mg/dL (0.7-1.3) Estimated GFR (Cockcroft-Gault) 29.7 BUN/Creatinine Ratio 28 (6-20) Glucose Level 135 mg/dL (70-99) Calcium Level 9.1 mg/dL (8.5-10.1) Total Bilirubin 1.0 mg/dL (0.2-1.0) Aspartate Amino Transf (AST/SGOT) 32 U/L (15-37) Alanine Aminotransferase (ALT/SGPT) 35 U/L (16-63) Alkaline Phosphatase 165 U/L (46-116) Total Protein 8.6 g/dL (6.4-8.2) Albumin 3.3 g/dL (3.4-5.0) Albumin/Globulin Ratio 0.6 (1.0-1.7) Laboratory Tests Test 03/01/19 11:38 03/01/19 13:09 03/01/19 16:45 03/01/19 16:52 Glucose (Fingerstick) 140 mg/dL (70-99) 118 mg/dL (70-99) 185 mg/dL (70-99) Digoxin Level 1.7 ng/mL (0.9-2.0) Digoxin Last Dose Date 03/01/19 Digoxin Last Dose Time 929 Test 03/01/19 20:36 03/02/19 04:30 03/02/19 07:18 Glucose (Fingerstick) 181 mg/dL (70-99) 97 mg/dL (70-99) White Blood Count 8.1 x10^3/uL (4.0-11.0) Red Blood Count 3.66 x10^6/uL (4.30-5.70) Hemoglobin 11.0 g/dL (13.0-17.5) Hematocrit 33.6 % (39.0-53.0) Mean Corpuscular Volume 92 fL (79-100) Mean Corpuscular Hemoglobin 30 pg (25-35) Mean Corpuscular Hemoglobin Concent 33 g/dL (31-37) Red Cell Distribution Width 19.4 % (11.5-14.5) Platelet Count 191 x10^3/uL (140-400) Neutrophils (%) (Auto) 67 % (31-73) Lymphocytes (%) (Auto) 13 % (24-48) Monocytes (%) (Auto) 10 % (0-9) Eosinophils (%) (Auto) 9 % (0-3) Basophils (%) (Auto) 2 % (0-3) Neutrophils # (Auto) 5.4 x10^3/uL (1.8-7.7) Lymphocytes # (Auto) 1.1 x10^3/uL (1.0-4.8) Monocytes # (Auto) 0.8 x10^3/uL (0.0-1.1) Eosinophils # (Auto) 0.7 x10^3/uL (0.0-0.7) Basophils # (Auto) 0.1 x10^3/uL (0.0-0.2) Sodium Level 144 mmol/L (136-145) Potassium Level 3.9 mmol/L (3.5-5.1) Chloride Level 103 mmol/L (98-107) Carbon Dioxide Level 33 mmol/L (21-32) Anion Gap 8 (6-14) Blood Urea Nitrogen 62 mg/dL (8-26) Creatinine 2.2 mg/dL (0.7-1.3) Estimated GFR (Cockcroft-Gault) 29.7 BUN/Creatinine Ratio 28 (6-20) Glucose Level 135 mg/dL (70-99) Calcium Level 9.1 mg/dL (8.5-10.1) Total Bilirubin 1.0 mg/dL (0.2-1.0) Aspartate Amino Transf (AST/SGOT) 32 U/L (15-37) Alanine Aminotransferase (ALT/SGPT) 35 U/L (16-63) Alkaline Phosphatase 165 U/L (46-116) Total Protein 8.6 g/dL (6.4-8.2) Albumin 3.3 g/dL (3.4-5.0) Albumin/Globulin Ratio 0.6 (1.0-1.7) Medications Current Medications Sodium Chloride (Normal Saline Flush) 3 ml QSHIFT PRN IV AFTER MEDS AND BLOOD DRAWS; Start 02/28/19 at 15:45 Ondansetron HCl (Zofran) 4 mg PRN Q4HRS PRN IV NAUSEA/VOMITING; Start 02/28/19 at 15:45 Acetaminophen (Tylenol) 650 mg PRN Q4HRS PRN PO TEMP OVER 100.4F OR MILD PAIN; Start 02/28/19 at 15:45 Clonidine HCl (Catapres) 0.1 mg PRN Q6HRS PRN PO SBP>160 OR DBP>90; Start 02/28/19 at 15:45 Docusate Sodium (Colace) 100 mg PRN BID PRN PO CONSTIPATION; Start 02/28/19 at 15:45 Albuterol Sulfate (Ventolin Neb Soln) 2.5 mg PRN Q4HRS PRN NEB SHORTNESS OF BREATH; Start 02/28/19 at 15:45 Guaifenesin (Robitussin) 200 mg PRN Q4HRS PRN PO COUGH; Start 02/28/19 at 15:45 Enoxaparin Sodium (Lovenox 40mg Syringe) 40 mg DAILY SQ ; Start 03/01/19 at 16:00; Stop 03/01/19 at 14:02; Status DC Insulin Human Lispro (HumaLOG) 0-5 UNITS TIDWMEALS SQ Last administered on 02/28/19at 17:33; Start 02/28/19 at 17:00 Dextrose (Dextrose 50%-Water Syringe) 12.5 gm PRN Q15MIN PRN IV SEE COMMENTS; Start 02/28/19 at 16:00 Dextrose 250 ml PRN Q15MIN PRN IV SEE COMMENTS; Start 02/28/19 at 16:00 Pantoprazole Sodium (Protonix) 40 mg DAILYAC PO ; Start 02/28/19 at 16:30 Polyethylene Glycol (miraLAX PACKET) 17 gm PRN DAILY PRN PO CONSTIPATION; Start 02/28/19 at 16:30 Allopurinol (Zyloprim) 100 mg DAILY PO Last administered on 03/02/19at 08:01; Start 03/01/19 at 09:00 Amiodarone HCl (Cordarone) 200 mg DAILY PO Last administered on 03/02/19at 08:00; Start 03/01/19 at 09:00 Ascorbic Acid (Vitamin C) 1,000 mg DAILY PO Last administered on 03/02/19 07:59; Start 03/01/19 at 09:00 Aspirin (Ecotrin) 81 mg DAILY PO Last administered on 03/02/19 07:57; Start 03/01/19 at 09:00 Atorvastatin Calcium (Lipitor) 60 mg QHS PO Last administered on 03/01/19at 20:42; Start 02/28/19 at 21:00 Vitamin D (Vitamin D3) 2,000 unit DAILY PO Last administered on 03/02/19 07:57; Start 03/01/19 at 09:00 Cyanocobalamin (Vitamin B-12) 1,000 mcg DAILY PO Last administered on 03/02/19 07:59; Start 03/01/19 at 09:00 Digoxin (Lanoxin) 125 mcg DAILY PO Last administered on 03/02/19at 08:01; Start 03/01/19 at 09:00 Furosemide (Lasix) 40 mg BID PO Last administered on 03/01/19at 09:30; Start 02/28/19 at 21:00; Stop 03/01/19 at 10:06; Status DC Isosorbide Mononitrate (Imdur) 30 mg DAILY PO Last administered on 03/02/19 08:02; Start 03/01/19 at 09:00 Latanoprost (Xalatan) 1 drop HS OU Last administered on 03/01/19 20:38; Start 02/28/19 at 21:00 Lisinopril (Prinivil) 20 mg DAILY PO Last administered on 03/01/19 09:31; Start 03/01/19 at 09:00; Stop 03/01/19 at 10:06; Status DC Tamsulosin HCl (Flomax) 0.4 mg HS PO Last administered on 03/01/19 20:42; Start 02/28/19 at 21:00 Timolol Maleate (Timoptic 0.5% Oph) 1 drop BID OU Last administered on 03/02/19 08:07; Start 02/28/19 at 21:00 Tramadol HCl (Ultram) 50 mg PRN Q12HR PRN PO PAIN; Start 02/28/19 at 18:15 Dorzolamide HCl (Trusopt) 1 drop TID OU Last administered on 03/02/19 08:08; Start 02/28/19 at 21:00 Artificial Tears (Artificial Tears) 1 drop QID OU Last administered on 03/01/19 20:38; Start 02/28/19 at 21:00 Carvedilol (Coreg) 50 mg BIDWMEALS PO Last administered on 03/02/19 07:55; Start 03/01/19 at 08:00 Gabapentin (Neurontin) 800 mg BID PO Last administered on 03/02/19 07:58; Start 02/28/19 at 21:00 Insulin Glargine (Lantus Syringe) 100 unit QHS SQ Last administered on 03/01/19 20:46; Start 02/28/19 at 21:00 Insulin Human Lispro (HumaLOG) 25 units TIDWMEALS SQ Last administered on 03/01/19 17:26; Start 03/01/19 at 08:00 Fish Oil (Fish Oil) 2,000 mg BID PO Last administered on 03/02/19 07:58; Start 02/28/19 at 21:00 Polyethylene Glycol (miraLAX PACKET) 17 gm DAILY PO ; Start 03/01/19 at 09:00 Linagliptin (Tradjenta) 5 mg DAILY PO Last administered on 03/02/19at 08:04; Start 03/01/19 at 09:00 Sertraline HCl (Zoloft) 150 mg DAILY PO Last administered on 03/02/19at 07:56; Start 03/01/19 at 09:00 Non-Formulary Medication (Ubidecarenone (Coenzyme Q10)) 10 mg DAILY PO ; Start 03/01/19 at 09:00; Stop 02/28/19 at 18:20; Status DC Perflutren Protein Type A Microsphe (Optison) 0.66 mg 1X ONCE IV Last administered on 03/01/19at 08:49; Start 03/01/19 at 08:45; Stop 03/01/19 at 08:46; Status DC Bumetanide (Bumex) 1 mg [id number] PO Last administered on 03/02/19at 08:02; Start 03/01/19 at 16:00 Enoxaparin Sodium (Lovenox 40mg Syringe) 40 mg Q24H SQ Last administered on 03/01/19at 16:12; Start 03/01/19 at 16:00 Active Scripts Active Reported Fish Oil 1,000 mg Softgel (Lander-3S/Dha/Epa/Fish Oil) 1 Each Capsule 2 Each PO BID Coenzyme Q10 (Ubidecarenone) 10 Mg Capsule 10 Mg PO DAILY Aspirin Ec (Aspirin) 81 Mg Tablet.dr 1 Tab PO DAILY Ascorbic Acid 500 Mg Tablet 1,000 Mg PO DAILY Humalog (Insulin Lispro) 100 Unit/1 Ml Cartridge 25 Unit SQ TIDWMEALS Levemir Flextouch (Insulin Detemir) 100 Unit/1 Ml Insuln.pen 100 Unit SQ HS Polyethylene Glycol 3350 2,500 Gm Powder 17 Gm PO DAILY Timoptic 0.5% (Timolol Maleate) 10 Ml Drops 1 Drop EACHEYE BID 30 Days Tramadol Hcl 50 Mg Tablet 50 Mg PO Q12HR PRN Flomax (Tamsulosin Hcl) 0.4 Mg Cap.er.24h 1 Cap PO HS Sertraline Hcl 100 Mg Tablet 150 Mg PO DAILY Onglyza (Saxagliptin Hcl) 5 Mg Tablet 2.5 Mg PO DAILY Lisinopril 20 Mg Tablet 1 Tab PO DAILY Latanoprost 2.5 Ml Drops 1 Drop OP HS Isosorbide Mononitrate Er (Isosorbide Mononitrate) 30 Mg Tab.er.24h 1 Tab PO DAILY Gabapentin 800 Mg Tablet 800 Mg PO BID Lasix (Furosemide) 40 Mg Tablet 40 Mg PO BID Digoxin 125 Mcg Tablet 125 Mcg PO DAILY Vitamin B-12 (Cyanocobalamin (Vitamin B-12)) 1,000 Mcg Tablet 1,000 Mcg PO DAILY Vitamin D3 (Cholecalciferol (Vitamin D3)) 1,000 Unit Tablet 2 Tab PO DAILY Coreg (Carvedilol) 25 Mg Tablet 50 Mg PO BIDWMEALS Refresh Optive Eye Drops (Carboxymethylcellulos/Glycerin) 15 Ml Drops 1 Drop EACHEYE QID Azopt (Brinzolamide) 10 Ml Drops.susp 1 Drop EACHEYE TID Atorvastatin Calcium 40 Mg Tablet 60 Mg PO HS PRN Amiodarone Hcl 200 Mg Tablet 1 Tab PO DAILY Allopurinol 100 Mg Tablet 1 Tab PO DAILY Vitals/I & O Vital Sign - Last 24 Hours 03/01/19 03/01/19 03/01/19 03/01/19 11:00 15:00 17:19 19:30 Temp 98.6 97.6 97.8 98.6 97.6 97.8 Pulse 61 60 61 59 Resp 20 20 18 B/P (MAP) 143/74 (97) 133/69 (90) 145/73 127/66 (86) Pulse Ox 92 96 96 O2 Delivery Nasal Cannula BiPAP/CPAP Room Air O2 Flow Rate 2.0 03/01/19 03/01/19 03/02/19 03/02/19 20:00 23:08 02:45 07:00 Temp 98.3 98.2 98.2 98.3 98.2 98.2 Pulse 61 59 64 Resp 18 20 20 B/P (MAP) 146/93 (110) 144/85 (104) 151/77 (101) Pulse Ox 92 94 98 O2 Delivery Room Air Room Air Room Air Room Air 03/02/19 03/02/19 03/02/19 03/02/19 07:55 08:00 08:01 08:02 Pulse 60 63 66 64 B/P (MAP) 151/77 151/77 151/77 151/77 Intake and Output 03/01/19 03/01/19 03/02/19 14:59 22:59 06:59 Intake Total 400 ml 1140 ml Output Total 600 ml 1600 ml 900 ml Balance -600 ml -1200 ml 240 ml Problem List Problems Medical Problems: (1) Acute exacerbation of CHF (congestive heart failure) Status: Acute (2) FILOMENA (acute kidney injury) Status: Acute Assessment Anemia- most likely multifactorial in etiology with CRI contributing, o/p colonosocpy at [facility] in 2 weeks tentatively planned SAMMIE GORDON MD Mar 02, 2019 10:44
[2019-03-02 11:00] VITALS: BP 141/81
--- NOTE | 2019-03-02 11:03 | PDOC ---
[employer] PROGRESS NOTE Chief Complaint Chief Complaint CHF Exacerbation. 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 Current echo EF on 03/01/19 is 10-15% Echo Impression on 03/01/19 The left ventricular systolic function is severely impaired. The Ejection Fraction is 10-15%. Pacer lead noted in RV/RA. Mild mitral regurgitation. Mild tricuspid regurgitation. The PA pressure was estimated at 32 mmHg. There is no evidence of significant pericardial effusion. D/w nurse and family Vitals/I&O Vitals/I&O: Vital Signs Date Time Temp Pulse Resp B/P (MAP) Pulse Ox O2 Delivery O2 Flow Rate FiO2 03/02/19 08:02 64 151/77 03/02/19 07:00 98.2 20 98 Room Air 98.2 03/01/19 11:00 2.0 I & O 03/01/19 03/01/19 03/02/19 15:00 23:00 07:00 Intake Total 400 ml 1140 ml Output Total 600 ml 1600 ml 900 ml Balance -600 ml -1200 ml 240 ml Physical Exam General: Alert, Oriented X3, Cooperative, No acute distress Heart: Regular rate (V paced), Normal S1, Normal S2, Other (3/6 systolic murmur to LLS border) Abdomen: Soft, No tenderness, Other (obese) Extremities: No cyanosis, Other (trace LE edema) Skin: No breakdown, No significant lesion Labs Labs: Laboratory Tests Test 03/01/19 11:38 03/01/19 13:09 03/01/19 16:45 03/01/19 16:52 Glucose (Fingerstick) 140 mg/dL (70-99) 118 mg/dL (70-99) 185 mg/dL (70-99) Digoxin Level 1.7 ng/mL (0.9-2.0) Digoxin Last Dose Date 03/01/19 Digoxin Last Dose Time 09 Test 03/01/19 20:36 03/02/19 04:30 03/02/19 07:18 Glucose (Fingerstick) 181 mg/dL (70-99) 97 mg/dL (70-99) White Blood Count 8.1 x10^3/uL (4.0-11.0) Red Blood Count 3.66 x10^6/uL (4.30-5.70) Hemoglobin 11.0 g/dL (13.0-17.5) Hematocrit 33.6 % (39.0-53.0) Mean Corpuscular Volume 92 fL (79-100) Mean Corpuscular Hemoglobin 30 pg (25-35) Mean Corpuscular Hemoglobin Concent 33 g/dL (31-37) Red Cell Distribution Width 19.4 % (11.5-14.5) Platelet Count 191 x10^3/uL (140-400) Neutrophils (%) (Auto) 67 % (31-73) Lymphocytes (%) (Auto) 13 % (24-48) Monocytes (%) (Auto) 10 % (0-9) Eosinophils (%) (Auto) 9 % (0-3) Basophils (%) (Auto) 2 % (0-3) Neutrophils # (Auto) 5.4 x10^3/uL (1.8-7.7) Lymphocytes # (Auto) 1.1 x10^3/uL (1.0-4.8) Monocytes # (Auto) 0.8 x10^3/uL (0.0-1.1) Eosinophils # (Auto) 0.7 x10^3/uL (0.0-0.7) Basophils # (Auto) 0.1 x10^3/uL (0.0-0.2) Sodium Level 144 mmol/L (136-145) Potassium Level 3.9 mmol/L (3.5-5.1) Chloride Level 103 mmol/L (98-107) Carbon Dioxide Level 33 mmol/L (21-32) Anion Gap 8 (6-14) Blood Urea Nitrogen 62 mg/dL (8-26) Creatinine 2.2 mg/dL (0.7-1.3) Estimated GFR (Cockcroft-Gault) 29.7 BUN/Creatinine Ratio 28 (6-20) Glucose Level 135 mg/dL (70-99) Calcium Level 9.1 mg/dL (8.5-10.1) Total Bilirubin 1.0 mg/dL (0.2-1.0) Aspartate Amino Transf (AST/SGOT) 32 U/L (15-37) Alanine Aminotransferase (ALT/SGPT) 35 U/L (16-63) Alkaline Phosphatase 165 U/L (46-116) Total Protein 8.6 g/dL (6.4-8.2) Albumin 3.3 g/dL (3.4-5.0) Albumin/Globulin Ratio 0.6 (1.0-1.7) Review of Systems Review of Systems: No nausea, no vomiting No chest pain, no palpitations Assessment and Plan Assessmemt and Plan Problems Medical Problems: (1) Acute exacerbation of CHF (congestive heart failure) Status: Acute (2) FILOMENA (acute kidney injury) Status: Acute Assessment CHF exacerbation Acute kidney injury Multicystic kidney disease Diabetes mellitus Plan Rx for Bumex 1 mg BID Home meds Cardiac monitoring Follow up with PCP Discharge today Comment Review of Relevant I have reviewed the following items aria (where applicable) has been applied. Medications: Current Medications Medications (Trade) Dose Ordered Sig/Aaliyah Route PRN Reason Start Time Stop Time Status Last Admin Dose Admin Bumetanide (Bumex) 1 mg [id number] PO 03/01/19 16:00 03/02/19 08:02 Enoxaparin Sodium (Lovenox 40mg Syringe) 40 mg Q24H SQ 03/01/19 16:00 03/01/19 16:12 COBY DAVIS III DO Mar 02, 2019 11:03
[2019-03-02] MEDS ORDERED: BUME1TAB3 PO (12:26)
--- NOTE | 2019-03-02 14:05 | NUR ---
Discharge Note: ROGERIO MUÑIZ [address] [place] [address] Discharge instructions and discharge home medications reviewed with Patient and a copy given. All questions have been answered and understanding verbalized. The following instructions and handouts were given: discharge instructions, CHF info, FILOMENA info. Discontinued lines and drains: Peripheral IV intact. Patient discharged to Home or Self Care with Spouse via Wheelchair at 1405.
--- NOTE | 2019-03-02 14:20 | PDOC ---
PROGRESS NOTES Subjective Subjective Patient seen and examined He looks and feels better. Objective Objective Vital Signs Date Time Temp Pulse Resp B/P (MAP) Pulse Ox O2 Delivery O2 Flow Rate FiO2 03/02/19 11:00 97.8 68 20 141/81 (101) 94 Room Air 97.8 03/01/19 11:00 2.0 Intake and Output 03/02/19 07:00 Intake Total 1540 ml Output Total 3100 ml Balance -1560 ml Intake Oral 1540 ml Output Urine Total 3100 ml Physical Exam Abdomen: Normal bowel sounds Heart: Regular rate General: mild distress Lungs: Other (minimally decreased breath sounds) Assessment Assessment Problems Medical Problems: (1) Acute exacerbation of CHF (congestive heart failure) Status: Acute (2) FILOMENA (acute kidney injury) Status: Acute Acute on chronic diastolic heart failure. ECHO confirms ejection fraction of 10- 15%. Changes from Lasix to Bumex as noted above. Feeling and looking better today. Would increase activities and probably discharge later today. Follow-up with his primary carcass splitter. Acute kidney injury on chronic kidney disease. Monitoring lab. History of bypass surgery. Medications as above. ICD in place. RESIDENT CARE AID�D. V paced. Diabetes mellitus. Insulin as per the primary service. Hypertension. Labile. Continuing to monitor. History of amiodarone use due to previous VT. Continuing to monitor rhythm and lab. Follow-up as per his primary carcass splitter. Sleep apnea on CPAP. Comment Review of Relevant I have reviewed the following items aria (where applicable) has been applied. Labs Laboratory Tests Test 02/28/19 15:45 02/28/19 17:12 02/28/19 18:54 02/28/19 21:34 Iron Level 68 ug/dL (65-175) Total Iron Binding Capacity 295 ug/dL (250-450) Iron Saturation 23 % (15-34) Creatine Kinase 138 U/L (39-308) 115 U/L (39-308) Creatine Kinase MB (Mass) 2.6 ng/mL (0.0-3.6) 2.8 ng/mL (0.0-3.6) Creatine Kinase MB Relative Index 1.9 % (0-4) 2.4 % (0-4) Troponin I Quantitative < 0.017 ng/mL (0.000-0.055) < 0.017 ng/mL (0.000-0.055) Vitamin B12 Level 1468 pg/mL (247-911) Free Thyroxine 0.80 ng/dL (0.76-1.46) Glucose (Fingerstick) 209 mg/dL (70-99) 202 mg/dL (70-99) Test 03/01/19 05:15 03/01/19 05:35 03/01/19 07:11 03/01/19 11:38 White Blood Count 8.2 x10^3/uL (4.0-11.0) Red Blood Count 3.37 x10^6/uL (4.30-5.70) Hemoglobin 10.1 g/dL (13.0-17.5) Hematocrit 30.8 % (39.0-53.0) Mean Corpuscular Volume 91 fL (79-100) Mean Corpuscular Hemoglobin 30 pg (25-35) Mean Corpuscular Hemoglobin Concent 33 g/dL (31-37) Red Cell Distribution Width 19.3 % (11.5-14.5) Platelet Count 172 x10^3/uL (140-400) Neutrophils (%) (Auto) 67 % (31-73) Lymphocytes (%) (Auto) 13 % (24-48) Monocytes (%) (Auto) 10 % (0-9) Eosinophils (%) (Auto) 9 % (0-3) Basophils (%) (Auto) 1 % (0-3) Neutrophils # (Auto) 5.5 x10^3/uL (1.8-7.7) Lymphocytes # (Auto) 1.1 x10^3/uL (1.0-4.8) Monocytes # (Auto) 0.8 x10^3/uL (0.0-1.1) Eosinophils # (Auto) 0.7 x10^3/uL (0.0-0.7) Basophils # (Auto) 0.1 x10^3/uL (0.0-0.2) Sodium Level 148 mmol/L (136-145) Potassium Level 3.7 mmol/L (3.5-5.1) Chloride Level 107 mmol/L (98-107) Carbon Dioxide Level 34 mmol/L (21-32) Anion Gap 7 (6-14) Blood Urea Nitrogen 64 mg/dL (8-26) Creatinine 2.1 mg/dL (0.7-1.3) Estimated GFR (Cockcroft-Gault) 31.3 BUN/Creatinine Ratio 30 (6-20) Glucose Level 89 mg/dL (70-99) Calcium Level 9.1 mg/dL (8.5-10.1) Total Bilirubin 1.0 mg/dL (0.2-1.0) Aspartate Amino Transf (AST/SGOT) 28 U/L (15-37) Alanine Aminotransferase (ALT/SGPT) 39 U/L (16-63) Alkaline Phosphatase 146 U/L (46-116) Total Protein 7.9 g/dL (6.4-8.2) Albumin 3.0 g/dL (3.4-5.0) Albumin/Globulin Ratio 0.6 (1.0-1.7) Urine Collection Type Unknown Urine Color Yellow Urine Clarity Clear Urine pH 7.0 Urine Specific [place] 1.010 Urine Protein 30 mg/dL (NEG-TRACE) Urine Glucose (UA) Negative mg/dL (NEG) Urine Ketones (Stick) Negative mg/dL (NEG) Urine Blood Negative (NEG) Urine Nitrite Negative (NEG) Urine Bilirubin Negative (NEG) Urine Urobilinogen Dipstick 1.0 mg/dL (0.2 mg/dL) Urine Leukocyte Esterase Negative (NEG) Urine RBC Occ /HPF (0-2) Urine WBC 0 /HPF (0-4) Urine Bacteria 0 /HPF (0-FEW) Glucose (Fingerstick) 76 mg/dL (70-99) 140 mg/dL (70-99) Test 03/01/19 13:09 03/01/19 16:45 03/01/19 16:52 03/01/19 20:36 Glucose (Fingerstick) 118 mg/dL (70-99) 185 mg/dL (70-99) 181 mg/dL (70-99) Digoxin Level 1.7 ng/mL (0.9-2.0) Digoxin Last Dose Date 03/01/19 Digoxin Last Dose Time 929 Test 03/02/19 04:30 03/02/19 07:18 03/02/19 11:55 White Blood Count 8.1 x10^3/uL (4.0-11.0) Red Blood Count 3.66 x10^6/uL (4.30-5.70) Hemoglobin 11.0 g/dL (13.0-17.5) Hematocrit 33.6 % (39.0-53.0) Mean Corpuscular Volume 92 fL (79-100) Mean Corpuscular Hemoglobin 30 pg (25-35) Mean Corpuscular Hemoglobin Concent 33 g/dL (31-37) Red Cell Distribution Width 19.4 % (11.5-14.5) Platelet Count 191 x10^3/uL (140-400) Neutrophils (%) (Auto) 67 % (31-73) Lymphocytes (%) (Auto) 13 % (24-48) Monocytes (%) (Auto) 10 % (0-9) Eosinophils (%) (Auto) 9 % (0-3) Basophils (%) (Auto) 2 % (0-3) Neutrophils # (Auto) 5.4 x10^3/uL (1.8-7.7) Lymphocytes # (Auto) 1.1 x10^3/uL (1.0-4.8) Monocytes # (Auto) 0.8 x10^3/uL (0.0-1.1) Eosinophils # (Auto) 0.7 x10^3/uL (0.0-0.7) Basophils # (Auto) 0.1 x10^3/uL (0.0-0.2) Sodium Level 144 mmol/L (136-145) Potassium Level 3.9 mmol/L (3.5-5.1) Chloride Level 103 mmol/L (98-107) Carbon Dioxide Level 33 mmol/L (21-32) Anion Gap 8 (6-14) Blood Urea Nitrogen 62 mg/dL (8-26) Creatinine 2.2 mg/dL (0.7-1.3) Estimated GFR (Cockcroft-Gault) 29.7 BUN/Creatinine Ratio 28 (6-20) Glucose Level 135 mg/dL (70-99) Calcium Level 9.1 mg/dL (8.5-10.1) Total Bilirubin 1.0 mg/dL (0.2-1.0) Aspartate Amino Transf (AST/SGOT) 32 U/L (15-37) Alanine Aminotransferase (ALT/SGPT) 35 U/L (16-63) Alkaline Phosphatase 165 U/L (46-116) Total Protein 8.6 g/dL (6.4-8.2) Albumin 3.3 g/dL (3.4-5.0) Albumin/Globulin Ratio 0.6 (1.0-1.7) Glucose (Fingerstick) 97 mg/dL (70-99) 152 mg/dL (70-99) Laboratory Tests Test 03/01/19 16:45 03/01/19 16:52 03/01/19 20:36 03/02/19 04:30 Digoxin Level 1.7 ng/mL (0.9-2.0) Digoxin Last Dose Date 03/01/19 Digoxin Last Dose Time 0930 Glucose (Fingerstick) 185 mg/dL (70-99) 181 mg/dL (70-99) White Blood Count 8.1 x10^3/uL (4.0-11.0) Red Blood Count 3.66 x10^6/uL (4.30-5.70) Hemoglobin 11.0 g/dL (13.0-17.5) Hematocrit 33.6 % (39.0-53.0) Mean Corpuscular Volume 92 fL (79-100) Mean Corpuscular Hemoglobin 30 pg (25-35) Mean Corpuscular Hemoglobin Concent 33 g/dL (31-37) Red Cell Distribution Width 19.4 % (11.5-14.5) Platelet Count 191 x10^3/uL (140-400) Neutrophils (%) (Auto) 67 % (31-73) Lymphocytes (%) (Auto) 13 % (24-48) Monocytes (%) (Auto) 10 % (0-9) Eosinophils (%) (Auto) 9 % (0-3) Basophils (%) (Auto) 2 % (0-3) Neutrophils # (Auto) 5.4 x10^3/uL (1.8-7.7) Lymphocytes # (Auto) 1.1 x10^3/uL (1.0-4.8) Monocytes # (Auto) 0.8 x10^3/uL (0.0-1.1) Eosinophils # (Auto) 0.7 x10^3/uL (0.0-0.7) Basophils # (Auto) 0.1 x10^3/uL (0.0-0.2) Sodium Level 144 mmol/L (136-145) Potassium Level 3.9 mmol/L (3.5-5.1) Chloride Level 103 mmol/L (98-107) Carbon Dioxide Level 33 mmol/L (21-32) Anion Gap 8 (6-14) Blood Urea Nitrogen 62 mg/dL (8-26) Creatinine 2.2 mg/dL (0.7-1.3) Estimated GFR (Cockcroft-Gault) 29.7 BUN/Creatinine Ratio 28 (6-20) Glucose Level 135 mg/dL (70-99) Calcium Level 9.1 mg/dL (8.5-10.1) Total Bilirubin 1.0 mg/dL (0.2-1.0) Aspartate Amino Transf (AST/SGOT) 32 U/L (15-37) Alanine Aminotransferase (ALT/SGPT) 35 U/L (16-63) Alkaline Phosphatase 165 U/L (46-116) Total Protein 8.6 g/dL (6.4-8.2) Albumin 3.3 g/dL (3.4-5.0) Albumin/Globulin Ratio 0.6 (1.0-1.7) Test 03/02/19 07:18 03/02/19 11:55 Glucose (Fingerstick) 97 mg/dL (70-99) 152 mg/dL (70-99) Medications Current Medications Sodium Chloride (Normal Saline Flush) 3 ml QSHIFT PRN IV AFTER MEDS AND BLOOD DRAWS; Start 02/28/19 at 15:45 Ondansetron HCl (Zofran) 4 mg PRN Q4HRS PRN IV NAUSEA/VOMITING; Start 02/28/19 at 15:45 Acetaminophen (Tylenol) 650 mg PRN Q4HRS PRN PO TEMP OVER 100.4F OR MILD PAIN; Start 02/28/19 at 15:45 Clonidine HCl (Catapres) 0.1 mg PRN Q6HRS PRN PO SBP>160 OR DBP>90; Start 02/28/19 at 15:45 Docusate Sodium (Colace) 100 mg PRN BID PRN PO CONSTIPATION; Start 02/28/19 at 15:45 Albuterol Sulfate (Ventolin Neb Soln) 2.5 mg PRN Q4HRS PRN NEB SHORTNESS OF BREATH; Start 02/28/19 at 15:45 Guaifenesin (Robitussin) 200 mg PRN Q4HRS PRN PO COUGH; Start 02/28/19 at 15:45 Enoxaparin Sodium (Lovenox 40mg Syringe) 40 mg DAILY SQ ; Start 03/01/19 at 16:00; Stop 03/01/19 at 14:02; Status DC Insulin Human Lispro (HumaLOG) 0-5 UNITS TIDWMEALS SQ Last administered on 02/28/19at 17:33; Start 02/28/19 at 17:00 Dextrose (Dextrose 50%-Water Syringe) 12.5 gm PRN Q15MIN PRN IV SEE COMMENTS; Start 02/28/19 at 16:00 Dextrose 250 ml PRN Q15MIN PRN IV SEE COMMENTS; Start 02/28/19 at 16:00 Pantoprazole Sodium (Protonix) 40 mg DAILYAC PO ; Start 02/28/19 at 16:30 Polyethylene Glycol (miraLAX PACKET) 17 gm PRN DAILY PRN PO CONSTIPATION; Start 02/28/19 at 16:30 Allopurinol (Zyloprim) 100 mg DAILY PO Last administered on 03/02/19at 08:01; Start 03/01/19 at 09:00 Amiodarone HCl (Cordarone) 200 mg DAILY PO Last administered on 03/02/19at 08:00; Start 03/01/19 at 09:00 Ascorbic Acid (Vitamin C) 1,000 mg DAILY PO Last administered on 03/02/19at 07:59; Start 03/01/19 at 09:00 Aspirin (Ecotrin) 81 mg DAILY PO Last administered on 03/02/19at 07:57; Start 03/01/19 at 09:00 Atorvastatin Calcium (Lipitor) 60 mg QHS PO Last administered on 03/01/19at 20:42; Start 02/28/19 at 21:00 Vitamin D (Vitamin D3) 2,000 unit DAILY PO Last administered on 03/02/19at 07:57; Start 03/01/19 at 09:00 Cyanocobalamin (Vitamin B-12) 1,000 mcg DAILY PO Last administered on 03/02/19at 07:59; Start 03/01/19 at 09:00 Digoxin (Lanoxin) 125 mcg DAILY PO Last administered on 03/02/19at 08:01; Start 03/01/19 at 09:00 Furosemide (Lasix) 40 mg BID PO Last administered on 03/01/19 09:30; Start 02/28/19 at 21:00; Stop 03/01/19 at 10:06; Status DC Isosorbide Mononitrate (Imdur) 30 mg DAILY PO Last administered on 03/02/19 08:02; Start 03/01/19 at 09:00 Latanoprost (Xalatan) 1 drop HS OU Last administered on 03/01/19 20:38; Start 02/28/19 at 21:00 Lisinopril (Prinivil) 20 mg DAILY PO Last administered on 03/01/19 09:31; Start 03/01/19 at 09:00; Stop 03/01/19 at 10:06; Status DC Tamsulosin HCl (Flomax) 0.4 mg HS PO Last administered on 03/01/19 20:42; Start 02/28/19 at 21:00 Timolol Maleate (Timoptic 0.5% [facility]) 1 drop BID OU Last administered on 03/02/19 08:07; Start 02/28/19 at 21:00 Tramadol HCl (Ultram) 50 mg PRN Q12HR PRN PO PAIN; Start 02/28/19 at 18:15 Dorzolamide HCl (Trusopt) 1 drop TID OU Last administered on 03/02/19 08:08; Start 02/28/19 at 21:00 Artificial Tears (Artificial Tears) 1 drop QID OU Last administered on 03/01/19 20:38; Start 02/28/19 at 21:00 Carvedilol (Coreg) 50 mg BIDWMEALS PO Last administered on 03/02/19 07:55; Start 03/01/19 at 08:00 Gabapentin (Neurontin) 800 mg BID PO Last administered on 03/02/19 07:58; Start 02/28/19 at 21:00 Insulin Glargine (Lantus Syringe) 100 unit QHS SQ Last administered on 03/01/19 20:46; Start 02/28/19 at 21:00 Insulin Human Lispro (HumaLOG) 25 units TIDWMEALS SQ Last administered on 03/01/19 17:26; Start 03/01/19 at 08:00 Fish Oil (Fish Oil) 2,000 mg BID PO Last administered on 03/02/19at 07:58; Start 02/28/19 at 21:00 Polyethylene Glycol (miraLAX PACKET) 17 gm DAILY PO ; Start 03/01/19 at 09:00 Linagliptin (Tradjenta) 5 mg DAILY PO Last administered on 03/02/19at 08:04; Start 03/01/19 at 09:00 Sertraline HCl (Zoloft) 150 mg DAILY PO Last administered on 03/02/19at 07:56; Start 03/01/19 at 09:00 Non-Formulary Medication (Ubidecarenone (Coenzyme Q10)) 10 mg DAILY PO ; Start 03/01/19 at 09:00; Stop 02/28/19 at 18:20; Status DC Perflutren Protein Type A Microsphe (Optison) 0.66 mg 1X ONCE IV Last administered on 03/01/19at 08:49; Start 03/01/19 at 08:45; Stop 03/01/19 at 08:46; Status DC Bumetanide (Bumex) 1 mg [id number] PO Last administered on 03/02/19at 08:02; Start 03/01/19 at 16:00 Enoxaparin Sodium (Lovenox 40mg Syringe) 40 mg Q24H SQ Last administered on 03/01/19at 16:12; Start 03/01/19 at 16:00 Active Scripts Active Reported Bumetanide 1 Mg Tablet 1 Tab PO BID Fish Oil 1,000 mg Softgel ([place]-3S/Dha/Epa/Fish Oil) 1 Each Capsule 2 Each PO BID Coenzyme Q10 (Ubidecarenone) 10 Mg Capsule 10 Mg PO DAILY Aspirin Ec (Aspirin) 81 Mg Tablet.dr 1 Tab PO DAILY Ascorbic Acid 500 Mg Tablet 1,000 Mg PO DAILY Humalog (Insulin Lispro) 100 Unit/1 Ml Cartridge 25 Unit SQ TIDWMEALS Levemir Flextouch (Insulin Detemir) 100 Unit/1 Ml Insuln.pen 100 Unit SQ HS Polyethylene Glycol 3350 2,500 Gm Powder 17 Gm PO DAILY Timoptic 0.5% (Timolol Maleate) 10 Ml Drops 1 Drop EACHEYE BID 30 Days Tramadol Hcl 50 Mg Tablet 50 Mg PO Q12HR PRN Flomax (Tamsulosin Hcl) 0.4 Mg Cap.er.24h 1 Cap PO HS Sertraline Hcl 100 Mg Tablet 150 Mg PO DAILY Onglyza (Saxagliptin Hcl) 5 Mg Tablet 2.5 Mg PO DAILY Latanoprost 2.5 Ml Drops 1 Drop OP HS Isosorbide Mononitrate Er (Isosorbide Mononitrate) 30 Mg Tab.er.24h 1 Tab PO DAILY Gabapentin 800 Mg Tablet 800 Mg PO BID Digoxin 125 Mcg Tablet 125 Mcg PO DAILY Vitamin B-12 (Cyanocobalamin (Vitamin B-12)) 1,000 Mcg Tablet 1,000 Mcg PO DAILY Vitamin D3 (Cholecalciferol (Vitamin D3)) 1,000 Unit Tablet 2 Tab PO DAILY Coreg (Carvedilol) 25 Mg Tablet 50 Mg PO BIDWMEALS Refresh Optive Eye Drops (Carboxymethylcellulos/Glycerin) 15 Ml Drops 1 Drop EACHEYE QID Azopt (Brinzolamide) 10 Ml Drops.susp 1 Drop EACHEYE TID Atorvastatin Calcium 40 Mg Tablet 60 Mg PO HS PRN Amiodarone Hcl 200 Mg Tablet 1 Tab PO DAILY Allopurinol 100 Mg Tablet 1 Tab PO DAILY Vitals/I & O Vital Sign - Last 24 Hours 03/01/19 03/01/19 03/01/19 03/01/19 15:00 17:19 19:30 20:00 Temp 97.6 97.8 97.6 97.8 Pulse 60 61 59 Resp 20 18 B/P (MAP) 133/69 (90) 145/73 127/66 (86) Pulse Ox 96 96 O2 Delivery BiPAP/CPAP Room Air Room Air 03/01/19 03/02/19 03/02/19 03/02/19 23:08 02:45 07:00 07:55 Temp 98.3 98.2 98.2 98.3 98.2 98.2 Pulse 61 59 64 60 Resp 18 20 20 B/P (MAP) 146/93 (110) 144/85 (104) 151/77 (101) 151/77 Pulse Ox 92 94 98 O2 Delivery Room Air Room Air Room Air 03/02/19 03/02/19 03/02/19 03/02/19 08:00 08:01 08:02 11:00 Temp 97.8 97.8 Pulse 63 66 64 68 Resp 20 B/P (MAP) 151/77 151/77 151/77 141/81 (101) Pulse Ox 94 O2 Delivery Room Air Intake and Output 03/01/19 03/01/19 03/02/19 15:00 23:00 07:00 Intake Total 400 ml 1140 ml Output Total 600 ml 1600 ml 900 ml Balance -600 ml -1200 ml 240 ml ROGERIO LAROSE MD Mar 02, 2019 14:20
--- NOTE | 2019-03-03 08:52 | DS ---
DATE OF DISCHARGE: 03/02/2019 ADMISSION DIAGNOSES: Acute on chronic systolic and diastolic heart failure, acute kidney injury. DISCHARGE DIAGNOSES: Resolving heart failure with 10-15% ejection fraction, history of [place] exposure with peripheral neuropathy. 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 Basically, he has near end-stage CHF. He also has chronic polycystic kidney disease, so he has a baseline creatinine in the low 2s. He was admitted with edema, shortness of breath and a bump in his creatinine. We consulted Cardiology, did serial enzymes, serial EKGs, diuresed him the best we could. His creatinine yesterday was 2.2. He was breathing better. His edema was better. He wanted to go home. We discharged with close outpatient followup. DISPOSITION: Home. ACTIVITY: As tolerated. DIET: Low sodium. MEDICATIONS: Please see the MRAD. Total time 32 minutes. COBY DAVIS DO DR: CASA/claudy JOB#: [id number] / [id number]
== END 2019-03-02 14:00 | disposition home or self-care (01) | DRG 682 ==
LOC: ER 13:42 → 2 SOUTH 14:55
PROVIDERS: ADMIT Family Medicine; ATTEND Family Medicine
DX: N17.9 Acute kidney failure, unspecified (principal); I50.43 Acute on chronic combined systolic (congestive) and diastolic (congestive) heart failure; I13.0 Hypertensive heart and chronic kidney disease with heart failure and stage 1 through stage 4 chronic kidney disease, or unspecified chronic kidney disease; Q61.3 Polycystic kidney, unspecified; R18.8 Other ascites; Z68.41 Body mass index [BMI] 40.0-44.9, adult; D50.0 Iron deficiency anemia secondary to blood loss (chronic); E03.9 Hypothyroidism, unspecified; E11.22 Type 2 diabetes mellitus with diabetic chronic kidney disease; E66.01 Morbid (severe) obesity due to excess calories; E78.5 Hyperlipidemia, unspecified; G47.33 Obstructive sleep apnea (adult) (pediatric); G62.9 Polyneuropathy, unspecified; I25.10 Atherosclerotic heart disease of native coronary artery without angina pectoris; I25.2 Old myocardial infarction; M19.90 Unspecified osteoarthritis, unspecified site; M10.9 Gout, unspecified; I25.5 Ischemic cardiomyopathy; I37.1 Nonrheumatic pulmonary valve insufficiency; K27.9 Peptic ulcer, site unspecified, unspecified as acute or chronic, without hemorrhage or perforation; K63.5 Polyp of colon; K83.8 Other specified diseases of biliary tract; N18.9 Chronic kidney disease, unspecified; Z79.4 Long term (current) use of insulin; Z79.82 Long term (current) use of aspirin; Z83.3 Family history of diabetes mellitus; Z87.11 Personal history of peptic ulcer disease; Z87.19 Personal history of other diseases of the digestive system; Z95.1 Presence of aortocoronary bypass graft; Z95.810 Presence of automatic (implantable) cardiac defibrillator
CPT/HCPCS: 99285; C8929; 36415; 71046; 76700; 80053; 80162; 81001; 82553; 82607; 82962; 83540; 83550; 83880; 84439; 84443; 84484; 85025; 85610; 85730; 93005; 93970; J1650; J1815; Q9956; G0378